=== PATIENT | male | born 1960 ===

== ENCOUNTER → 2020-08-03 15:21 | Outpatient (BNVA) | payer BC, SELFPAY | PROVIDERS: PCP Internal Medicine; Visit Provider Internal Medicine Cardiovascular Disease | DX: I25.10 Atherosclerotic heart disease of native coronary artery without angina pectoris (principal); I10 Essential (primary) hypertension | CPT/HCPCS: 93005 ==

== ENCOUNTER → 2020-08-30 07:27 | Outpatient (REF) | payer BC, SELFPAY ==
--- NOTE | 2020-08-30 07:36 | CA_ITS ---
Transthoracic Echocardiogram Patient (Last, First, Middle): Edy Agosto R Gender: Male Date of : 1960 Age: 60 Procedure Date: 08/30/2020 Procedure Type: Transthoracic Echocardiogram Location: OP Height: 175.26 cm Weight: 104.33 kg BSA: 2.19 m2 Heart Rate: bpm BP: 124 / 70 mmHg Operations Asst: Referring MD: Stephon Rodriguez MD Symptoms: I10 - Essential (primary) hypertension Study Quality: Fair ECG Rhythm: Sinus Conclusions: - The left ventricular systolic function is low normal. The visually estimated ejection fraction is between 50-55%. - No obvious valvular pathology seen on this study. Findings Left Ventricle Normal left ventricular cavity size. There is normal left ventricular wall thickness. The left ventricular systolic function is low normal. The visually estimated ejection fraction is between 50-55%. There is no evidence of regional wall motion abnormalities. Diastolic function is normal for age. Right Ventricle Normal right ventricular cavity size and systolic function. Atria The left atrium is normal in size. The right atrium is normal in size. Aortic Valve There is a normal trileaflet aortic valve. There is no aortic valve stenosis. There is no aortic valve regurgitation. Mitral Valve The mitral valve appears normal. There is trace mitral valve regurgitation. There is no mitral valve stenosis. Pulmonic Valve The pulmonic valve was not well visualized. Tricuspid Valve Normal tricuspid valve structure. There is trace tricuspid valve regurgitation. The pulmonary artery systolic pressure is normal. Great Vessels The asc aorta and aortic arch are normal in size. Venous The inferior vena cava is normal in size and collapses greater than 50% with inspiration. Pericardium/Pleural There is no evidence of pericardial effusion. Prior Study Comparison No significant change compared to prior study dated: 02/05/2016. Recommendations, Care & Conclusions No obvious valvular pathology seen on this study. Measurements 2D Linear Measurements RVIDd: 3.48 RVIDd Index: 1.59 IVSd: 0.95 0.6-0.9/0.6-1.0 cm LVIDd: 4.97 3.9-5.3/4.2-5.9 cm LVIDd Index: 2.27 2.4-3.2/2.2-3.1 cm/m2 LVIDs: 3.70 2.0-3.6 cm LVPWd: 1.12 0.7-1.1 cm Ao Root: 2.90 2.1-3.5 cm LA Diam: 3.50 2.7-3.8/3.0-4.0 cm LAIDs Index: 1.60 1.5-2.3 cm/m2 LV Mass: 234.58 67-162/88-224 g LV Mass Index: 107.11 43-95/49-115 g/m2 LVOT Diam: 2.20 3.0+(-)1.3 cm 2D Systolic Function EF 4C: 50.40 >55% EF 2C: 59.40 >55% EF BiP: 54.80 >55% Mitral Valve MV Pk E: 0.75 MV PK A: 0.47 MV Decel Time: 245.00 E/A: 1.60 E'Lateral: 8.27 E'Medial: 5.77 E/E' Med: 13.10 E/E' Lat: 9.10 Aortic Valve AoV Pk Bulmaro: 0.97 AoV Mn Bulmaro: 0.72 AoV VTI: 0.19 AoV Pk Grad: 4.00 Aov Mn Grad: 2.00 BRAX[place] Cont.VTI: 3.50 LVOT LVOT Pk Bulmaro: 0.92 LVOT Mn Bulmaro: 0.63 LVOT VTI: 0.17 LVOT Pk Grad: 3.00 LVOT Mn Grad: 2.00 LVOT Diam: 2.20 LVOT Area: 3.80 Diastolic Function MV Pk E: 0.75 MV Pk A: 0.47 E/A: 1.60 E'Medial: 5.77 E/E' Med: 13.10 E' Laterial: 8.27 E/E' Lat: 9.10 Tricuspid Valve TR Pk Bulmaro: 2.13 TR Pk Grad: 18.00 RA Press: 3.00 RVSP: 21.00 Great Vessels Aorta Ao Root-2D: 2.90 2.0-3.7 cm Ao Asc: 3.10 2.1-3.4 cm Ao Arch: 3.00 Updated in Other Vendor System with Status of Final Harmeet Garrison MD electronically signed on 08/30/2020 4:08:51 PM with status of Final
[2020-08-30 08:39] LABS: MANUAL DIFF FLAG NO
[2020-08-30 08:56] LABS: Basophils Percent Auto 0.8 % (0-2); Eosinophils Absolute Auto 0.1 X10*3/uL (0.0-0.4); Hematocrit 46.6 % (42-52); Hemoglobin 15.6 g/dl (14.0-18.0); Imm Gran Abs Auto 0.01 X10*3/uL (0.00-0.03); Imm Gran Pct Auto 0.2 % (0.0-0.4); Lymphocytes Absolute Auto 1.6 X10*3/uL (1.2-4.9); Lymphocytes Percent Auto 31.9 % (20-40); Mean Corpuscular HGB Conc 33.5 g/dl (31.0-36.0); Mean Corpuscular Volume 92.5 fL (80-98); Mean Platelet Volume 9.7 fL (9.4-12.4); Monocytes Absolute Auto 0.5 X10*3/uL (0.1-1.2); Monocytes Percent Auto 8.9 % (2-11); Neutrophils Absolute Auto 2.9 X10*3/uL (2.0-8.3); Neutrophils Percent Auto 57.2 % (45-73); Platelet Count 247 X10*3/uL (160-400); Red Blood Count 5.04 X10*6/uL (4.60-5.80); Red Cell Distribution Width 13.1 % (11.0-16.0); White Blood Count 5.1 X10*3/uL (4.8-10.8)
[2020-08-30 09:47] LABS: Folate 14.8 ng/mL (> or = 4.0); Vitamin B12 299 pg/mL (200-900)
[2020-08-30 09:52] LABS: Alanine Aminotransferase 30 U/L (0-40); Albumin Level 4.2 g/dL (3.5-5.0); Alkaline Phosphatase 63 U/L (39-117); Anion Gap 11 (12-20); Aspartate Amino Transferase 22 U/L (5-37); Bilirubin Total 1.1 mg/dL (0.0-1.0); Blood Urea Nitrogen 12 mg/dL (9-16); Calcium 9.4 mg/dL (8.4-10.2); Carbon Dioxide 28 mmol/L (22-29); Chloride 105 mmol/L (96-108); Cholesterol 86 mg/dL; Estimated Glomerular Filt Rate > 60; Glucose Random 88 mg/dL (60-115); HDL Cholesterol 45 mg/dL; LDL Cholesterol Calculated 14 mg/dl; Potassium 4.5 mmol/L (3.3-5.1); Sodium 139 mmol/L (135-145); Triglycerides 137 mg/dL
[2020-08-30 10:11] LABS: Free T4 (Free Thyroxine) 0.83 ng/dL (0.71-1.85); Prostate Specific Antigen Scr 0.32 ng/mL (<0.05-4.0); Thyroid Stimulating Hormone 1.48 uIU/mL (0.32-4.0)
== END ==
LOC: HO.CARD 07:27
PROVIDERS: PCP Internal Medicine; Visit Provider Internal Medicine Cardiovascular Disease
DX: I10 Essential (primary) hypertension (principal); E78.00 Pure hypercholesterolemia, unspecified; I25.10 Atherosclerotic heart disease of native coronary artery without angina pectoris; Z12.5 Encounter for screening for malignant neoplasm of prostate
CPT/HCPCS: 36415; 80053; 80061; 82607; 82746; 84153; 84439; 84443; 85025; 93306

== ENCOUNTER 2021-08-16 15:00 | Outpatient (RCR) | payer BC, SELFPAY ==
--- NOTE | 2021-07-19 16:00 | MHC.PT.EP ---
[facility] [place] [facility] [place] [facility] [place] [facility] [address] Yee Mayes [address] [phone] F: [phone] F: [phone] F: [phone] F: [phone] Physical Therapy Plan of Care Date of Evaluation: Date of Surgery: n/a Diagnosis: pain in L leg Assessment: Patient is a 61 year old male presenting to PT with complaints of pain in his L leg. Pt reports onset of pain began about 5 weeks ago due to stretching while in bed. He presents today with impairments in pain, lumbar ROM, hip strength, core strength, and posture. 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 Pt expresses senior living goal of reducing pain and sx, and is motivated to work towards this in PT. Clinical presentation today is most consistent with signs and sx associated with pain involving a nerve and pt will benefit from skilled PT to address the following problems and impairments noted upon evaluation: pain, lumbar ROM, hip strength, core strength, and posture. These problems limit the patient with the following functional activities: ADLs, work, sleep. The prescribed treatment plan of care is medically necessary. Co-morbidities of CAD, HTN, hx 2 CO in 40s has stents in place, hx herniated disc with surgery resolving sx were identified and taken into considerations of plan of care. Pt was educated on HEP, role of PT, prognosis, POC. Frequency and Duration: The patient will be seen 2 x week x 4 weeks Short Term Goals: Pt will demonstrate pain at rest <3/10 with centralizing sx in 2 weeks for improved QOL. Pt will demonstrate improved hip strength by 1/3 MMT for improved lumbopelvic stability in 2 weeks. Pt will demonstrate ability to perform PPT with good core activation in 2 weeks for improved core strength. Pt will demonstrate improved postural awareness by sitting with biomechanically correct posture without cues throughout session to improve overall postural function in 2 weeks. Manufacturing Team Member Goals: Pt will demonstrate improved LEFI by 9 points in 4 weeks for improved functional mobility. Pt will demonstrate ability to complete all ADLs with min to no pain or sx in 4 weeks for return to PLOF. Treatment Plan: Modalities to reduce pain, spasms and effusion. Manual therapy to restore motion and function. Therapeutic exercise to improve strength and flexibility. Neuromuscular re-education for posture and balance. Therapeutic activities to return to functional activities of daily living. Electronically signed by: Joelle Caldwell, PT, DPT, ATC Please sign and return to therapist. Thank you for your referral.
--- NOTE | 2021-08-18 11:09 | MHC.PT.DC ---
[facility] [place] [facility] [place] Office [place] Office [address] [phone] F: [phone] F: [phone] F: [phone] F: [phone] Physical Therapy Discharge Report Diagnosis: pain in L leg Date of Surgery: n/a Date of Evaluation: 07/19/21 Date of Discharge: 08/18/21 Treatments to Date: 8 Cancellations to Date: 1 No Shows to Date: 0 Discharge Status: Patient Elected to Stop Discharge Summary: Self d/c. Pt called stating he would like to be d/c from skilled PT. Electronically signed by: Joelle Caldwell, PT, DPT, ATC Please sign and return to therapist. Thank you for your referral.
== END 2021-08-18 11:10 | disposition home or self-care (01) ==
LOC: HO.PTCHIC 15:00
PROVIDERS: PCP Internal Medicine; Visit Provider Internal Medicine
DX: M79.605 Pain in left leg (principal)
CPT/HCPCS: 97110; 97140; 97161; 97530

== ENCOUNTER 2021-09-02 07:49 | Day surgery (SDC) | payer BC, SELFPAY ==
[2021-08-29 09:59] VITALS: BMI 34.0
--- NOTE | 2021-09-01 10:12 | HO.ANESPROP2 ---
Documented by User: Mel Gross NP 09/01/21 10:16 HPI - Anesthesia Eval Consult details Narrative: 61yo M for ?Colonoscopy CAD with stents ([place] 2008). Yearly cardiac f/u. Last seen 07/2020. Pt exercising 4-5 days per week without cardiac symptoms. [facility] Active Problems Active Problems: All Active Problems (Updated 07/08/21 @ 11:14 by Puma Dailey MD) Annual physical exam (Acute) Leg pain, left (Acute) Hypercholesterolemia (Acute) Hypertension (Acute) Obesity (BMI 30-39.9) (Acute) GERD (gastroesophageal reflux disease) (Acute) Coronary artery disease (Acute) Past Medical History Medical History (Updated 09/02/21 @ 07:57 by Glendy Schmid, RN) Alcohol abuse Coronary artery disease Erectile dysfunction GERD (gastroesophageal reflux disease) Hypercholesterolemia Hypertension Obesity (BMI 30-39.9) Polysubstance abuse Sciatica Vitamin D deficiency Family History Family History (Updated 06/22/20 @ 13:43 by Chhaya Durand [facility]) Father Myocardial infarction Hypertension CVD (cardiovascular disease) Mother Hypertension Maternal Aunt Breast cancer Surgical History Surgical History History of surgery Hx of cardiac cath Hx of colonoscopy Stented coronary artery Social History Social History (Updated 05/02/21 @ 16:52 by Puma Dailey MD) Housing: Condominium Alcohol intake: current Alcohol intake frequency: a few times a week Alcohol type: beer Patient Tobacco Use Status: Never used Tobacco e-Cigarette/Vaping Use: Never Used Second Hand Smoke Exposure: No Use of substances other than those prescribed or required for medical reasons: No Are you DNR?: No Advance Directives: No Advance Directives Information Provided: No Advance Directives on File: No service: No Current occupational status: employed Meds Allergies Allergy/AdvReac Type Severity Reaction Status Date / Time atorvastatin [Lipitor] AdvReac Unknown Muscle Verified 09/02/21 07:57 cramps ezetimibe [Zetia] AdvReac Unknown Muscle Verified 09/02/21 07:57 cramps rosuvastatin [Crestor] AdvReac Unknown Muscle Verified 09/02/21 07:57 cramps Statins Support AdvReac Unknown Muscle Uncoded 08/29/21 09:58 cramps Home Medications Medication Instructions Recorded Confirmed Last Taken Type aspirin 81 mg tablet,delayed 81 mg PO DAILY 06/28/20 08/29/21 08/26/21 History release (Adult Aspirin Regimen) coenzyme Q10 30 mg capsule (CoQ-10) 30 mg PO DAILY 06/28/20 08/29/21 Unknown History Exam Exam Date and Time: September 01, 2021 1012 Height,Weight and Vital Signs: Height 5 ft 9 in Weight 104.326 kg Assessment and Plan Assessment Anesthesia Assessment: Chart Reviewed Documented by User: Rosy Shaffer MD 09/02/21 09:00 PMFSH Active Problems Active Problems: All Active Problems (Updated 07/08/21 @ 11:14 by Puma Dailey MD) Annual physical exam (Acute) Leg pain, left (Acute) Hypercholesterolemia (Acute) Hypertension (Acute) Obesity (BMI 30-39.9) (Acute) GERD (gastroesophageal reflux disease) (Acute) Coronary artery disease (Acute) [place] 2006-2 stents, [place] 2008- 3 stents. Denies recent chest pain. 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 Due for visit soon Binge drinking at weekends Denies any substance abuse in 'months' Snores but denies QUINN Past Medical History Medical History (Updated 09/02/21 @ 07:57 by Glendy Schmid RN) Alcohol abuse Coronary artery disease Erectile dysfunction GERD (gastroesophageal reflux disease) Hypercholesterolemia Hypertension Obesity (BMI 30-39.9) Polysubstance abuse Sciatica Vitamin D deficiency Family History Family History (Updated 06/22/20 @ 13:43 by KATH Hagan) Father Myocardial infarction Hypertension CVD (cardiovascular disease) Mother Hypertension Maternal Aunt Breast cancer Family history of problems with anesthesia: No Surgical History Surgical History History of surgery Hx of cardiac cath Hx of colonoscopy Stented coronary artery History of Problems with Anesthesia: No Social History Social History (Updated 05/02/21 @ 16:52 by Puma Dailey MD) Housing: [facility] Alcohol intake: current Alcohol intake frequency: a few times a week Alcohol type: beer Patient Tobacco Use Status: Never used Tobacco e-Cigarette/Vaping Use: Never Used Second Hand Smoke Exposure: No Use of substances other than those prescribed or required for medical reasons: No Are you DNR?: No Advance Directives: No Advance Directives Information Provided: No Advance Directives on File: No service: No Current occupational status: employed Meds Allergies Allergy/AdvReac Type Severity Reaction Status Date / Time atorvastatin [Lipitor] AdvReac Unknown Muscle Verified 09/02/21 07:57 cramps ezetimibe [Zetia] AdvReac Unknown Muscle Verified 09/02/21 07:57 cramps rosuvastatin [Crestor] AdvReac Unknown Muscle Verified 09/02/21 07:57 cramps Statins Support AdvReac Unknown Muscle Uncoded 08/29/21 09:58 cramps Home Medications Medication Instructions Recorded Confirmed Last Taken Type aspirin 81 mg tablet,delayed 81 mg PO DAILY 06/28/20 08/29/21 08/26/21 History release (Adult Aspirin Regimen) coenzyme Q10 30 mg capsule (CoQ-10) 30 mg PO DAILY 06/28/20 08/29/21 Unknown History Exam Height,Weight and Vital Signs: Height 5 ft 9 in Weight 104.326 kg Vital Signs Temp Pulse Resp BP Pulse Ox 09/02/21 08:03 97.4 F 68 15 146/64 H 97 Airway Mallampati Class: III TM Dist: >3cm Neck ROM: Full Loose/Missing/Broken Teeth: Yes (Missing 1 front. No broken/loose) Heart: RRR Lungs: CTAB Assessment and Plan Final Anesthetic Review Family History of Problems with Anesthesia: No History of Problems with Anesthesia: No NPO: Yes ASA Class: III Final Preanesthetic Review: No Changes in Pt Med Stat, Meds/Allgs Chart Reviewed, Consent Obtained/Reviewed and Anes Risks/Benef Reviewed Patient Risk: Intermediate Procedure Risk: Low Assessment/Block/Sedation in SS: Assess/Block/Sedation-SS Anesthetic Plan Anesthetic Plan: MAC: Disposition: Standard PACU
[2021-09-02 08:03] VITALS: BP 146/64; PULSE 68; RESP 15; TEMP 36.3; O2SAT 97
[2021-09-02] MEDS: Lactated Ringers 1,000 ML 100 ML IVCONT (08:17)
--- NOTE | 2021-09-02 09:04 | MHC.SHP ---
Pre-Procedural Eval Section A Date of Service: 09/02/21 Section B Chief Complaint: screening Details of Present Illness: see h and p no changes Relevant Family History (Specify if Yes): No Relevant Social History: None Present Medications: see Short Stay Collaborative assessment Medical History: No relevant PMH History of Previous Operations: No relevant previous surgery Allergies: Allergies Allergy/AdvReac Type Severity Reaction Status Date / Time atorvastatin [Lipitor] AdvReac Unknown Muscle Verified 09/02/21 07:57 cramps ezetimibe [Zetia] AdvReac Unknown Muscle Verified 09/02/21 07:57 cramps rosuvastatin [Crestor] AdvReac Unknown Muscle Verified 09/02/21 07:57 cramps Statins Support AdvReac Unknown Muscle Uncoded 08/29/21 09:58 cramps Review of Systems Sugical H&P ROS: Negative: Constitution, Cardiovascular, Respiratory, Neurological, Psychiatric, Hem-Onc, Allergic/Immunologic, Gastrointestinal, Genitourinary, Musculoskeletal, Integumentary, Endocrine and Eyes/Ears/Nose/Throat Exam Surgical H&P Exam: Normal: HEENT, Normal: Heart, Normal: Lungs, Normal: Extremities, Normal: Abdomen, Normal: Skin and Normal: Neurological Plan I have reviewed the history and physical and performed a pertinent physical examination on my patient. No changes have occurred unless specified.
[2021-09-02 09:49] VITALS: BP 95/60; PULSE 72; RESP 16; TEMP 36.5; O2SAT 98
--- NOTE | 2021-09-02 09:53 | P.BOP_ITS ---
Brief Operative Note Date of Service: 09/02/21 Pre-op diagnosis: screening Post-op diagnosis: same (colon polyps) Surgeon: Jose Jacques Anesthesia: MAC Was an Extruding Press Adjuster used for this Procedure?: No Estimated blood loss (mL): 2 Pathology: other Condition: stable Disposition: PACU
[2021-09-02 10:04] VITALS: BP 118/72; PULSE 65; RESP 16; TEMP 36.6; O2SAT 99
[2021-09-02 10:19] VITALS: BP 111/68; PULSE 62; RESP 16; TEMP 36.2; O2SAT 98
--- NOTE | 2021-09-02 22:20 | OP_ITS ---
SURGEON: Jose Jacques MD INDICATIONS: Colon cancer screening. PREOPERATIVE DIAGNOSIS: POSTOPERATIVE DIAGNOSIS: PROCEDURE PERFORMED: Colonoscopy to the terminal ileum with snare polypectomy and biopsy. ESTIMATED BLOOD LOSS: COMPLICATIONS: ANESTHESIA: ASSISTANTS: SPECIMENS: MEDICATIONS: Monitored anesthesia care. DESCRIPTION OF PROCEDURE: The history and physical performed. The risks and benefits of the procedure were explained to the patient. Informed consent was obtained. The patient was placed in the left lateral decubitus position. A digital rectal exam was performed and was found to be normal. The Olympus pediatric video colonoscope was introduced into the rectum and advanced to the cecum without difficulty. The cecum was identified by transillumination, palpation, and identification of the ileocecal valve. Examination was performed. The scope was removed. He tolerated the procedure well and was taken to Recovery in stable condition. FINDINGS: The terminal ileum was normal. The visualized colonic mucosa was normal. The quality of the prep was good. In the right colon was an 8 mm polyp, which was removed with a cold snare and recovered via suction. In the rectum was a less than 5 mm sessile polyp, which was removed with the biopsy forceps. There was moderate sigmoid diverticulosis. Retroflexed examination was normal. IMPRESSION: Colon polyps. RECOMMENDATION: Follow up the biopsy results. MD YURIDIA Rascon/MARIELENAL / [id number]
== END 2021-09-02 11:14 | disposition home or self-care (01) ==
PROVIDERS: PCP Internal Medicine; Visit Provider Internal Medicine Gastroenterology
PROC: 0DJD8ZZ Inspection of Lower Intestinal Tract, Via Natural or Artificial Opening Endoscopic (ICD-10-PCS; CPT 45378; principal; 2021-09-02 09:00)
DX: Z12.11 Encounter for screening for malignant neoplasm of colon (principal); Z86.010 Personal history of colon polyps; D12.2 Benign neoplasm of ascending colon; K62.1 Rectal polyp; K57.30 Diverticulosis of large intestine without perforation or abscess without bleeding; G58.8 Other specified mononeuropathies; I25.10 Atherosclerotic heart disease of native coronary artery without angina pectoris; Z95.5 Presence of coronary angioplasty implant and graft; E78.00 Pure hypercholesterolemia, unspecified; Z79.82 Long term (current) use of aspirin; Z79.899 Other long term (current) drug therapy; Z98.890 Other specified postprocedural states
CPT/HCPCS: 45385; 45380; 88305

== ENCOUNTER 2021-11-03 06:01 | Outpatient (REF) | payer BC, SELFPAY ==
[2021-11-03 07:25] LABS: Basophils Percent Auto 0.5 % (0-2); Eosinophils Absolute Auto 0.1 X10*3/uL (0.0-0.4); Eosinophils Percent Auto 1.6 % (0-4); Hematocrit 45.8 % (42.0-52.0); Hemoglobin 15.4 g/dl (14.0-18.0); Imm Gran Abs Auto 0.01 X10*3/uL (0.00-0.03); Imm Gran Pct Auto 0.2 % (0.0-0.4); Lymphocytes Absolute Auto 1.5 X10*3/uL (1.2-4.9); Lymphocytes Percent Auto 26.6 % (20-40); MANUAL DIFF FLAG NO; Mean Corpuscular HGB Conc 33.6 g/dl (31.0-36.0); Mean Corpuscular Volume 92.3 fL (80.0-98.0); Mean Platelet Volume 9.6 fL (9.4-12.4); Monocytes Absolute Auto 0.6 X10*3/uL (0.1-1.2); Monocytes Percent Auto 9.9 % (2-11); Neutrophils Absolute Auto 3.4 x10*3/uL (2.0-8.3); Neutrophils Percent Auto 61.2 % (45-73); Platelet Count 253 X10*3/uL (160-400); Red Blood Count 4.96 X10*6/uL (4.60-5.80); Red Cell Distribution Width 13.2 % (11.0-16.0); White Blood Count 5.5 X10*3/uL (4.8-10.8)
[2021-11-03 08:12] LABS: Alanine Aminotransferase 34 U/L (0-40); Albumin Level 4.4 g/dL (3.5-5.0); Alkaline Phosphatase 66 U/L (39-117); Anion Gap 14 (12-20); Aspartate Amino Transferase 23 U/L (5-37); Bilirubin Total 0.7 mg/dL (0.0-1.0); Blood Urea Nitrogen 17 mg/dL (9-16); Carbon Dioxide 26 mmol/L (22-29); Chloride 106 mmol/L (96-108); Cholesterol 105 mg/dL; Estimated Glomerular Filt Rate > 60; Glucose Random 95 mg/dL (60-115); HDL Cholesterol 45 mg/dL; LDL Cholesterol Calculated 40 mg/dl; Potassium 4.8 mmol/L (3.3-5.1); Sodium 141 mmol/L (135-145); Total Protein 7.4 g/dL (6.5-8.0); Triglycerides 104 mg/dL
[2021-11-03 08:33] LABS: Free T4 (Free Thyroxine) 0.78 ng/dL (0.71-1.85); Prostate Specific Antigen Scr 0.31 ng/mL (<0.05-4.0); Thyroid Stimulating Hormone 2.53 uIU/mL (0.32-4.0)
[2021-11-03 08:53] LABS: Folate 15.6 ng/mL (> or = 4.0); Vitamin B12 313 pg/mL (200-900)
== END 2021-11-03 06:02 | disposition home or self-care (01) ==
LOC: HO.LAB 06:01
PROVIDERS: PCP Internal Medicine; Visit Provider Internal Medicine
DX: K21.9 Gastro-esophageal reflux disease without esophagitis (principal); E78.00 Pure hypercholesterolemia, unspecified; I25.10 Atherosclerotic heart disease of native coronary artery without angina pectoris; Z12.5 Encounter for screening for malignant neoplasm of prostate
CPT/HCPCS: 36415; 80053; 80061; 82607; 82746; 84153; 84439; 84443; 85025

== ENCOUNTER → 2021-11-24 15:22 | Outpatient (BNVA) | payer BC, SELFPAY | PROVIDERS: PCP Internal Medicine; Referring Provider Internal Medicine; Visit Provider Internal Medicine Cardiovascular Disease | DX: I25.10 Atherosclerotic heart disease of native coronary artery without angina pectoris (principal); I10 Essential (primary) hypertension | CPT/HCPCS: 93005 ==

== ENCOUNTER 2022-11-08 06:38 | Outpatient (REF) | payer BC, SELFPAY ==
[2022-11-08 06:55] LABS: MANUAL DIFF FLAG NO
[2022-11-08 08:52] LABS: Basophils Percent Auto 0.4 % (0-2); Eosinophils Absolute Auto 0.1 X10*3/uL (0.0-0.4); Eosinophils Percent Auto 1.2 % (0-4); Hematocrit 47.5 % (42.0-52.0); Hemoglobin 16.1 g/dl (14.0-18.0); Imm Gran Abs Auto 0.02 X10*3/uL (0.00-0.03); Imm Gran Pct Auto 0.4 % (0.0-0.4); Lymphocytes Absolute Auto 1.4 X10*3/uL (1.2-4.9); Lymphocytes Percent Auto 28.7 % (20-40); Mean Corpuscular HGB Conc 33.9 g/dl (31.0-36.0); Mean Corpuscular Hemoglobin 31.4 pg (27.0-33.0); Mean Corpuscular Volume 92.8 fL (80.0-98.0); Monocytes Absolute Auto 0.4 X10*3/uL (0.1-1.2); Neutrophils Absolute Auto 3.1 x10*3/uL (2.0-8.3); Neutrophils Percent Auto 61.3 % (45-73); Platelet Count 263 X10*3/uL (160-400); Red Blood Count 5.12 X10*6/uL (4.60-5.80)
[2022-11-08 09:28] LABS: Alanine Aminotransferase 35 U/L (0-40); Alkaline Phosphatase 62 U/L (39-117); Anion Gap 14 (12-20); Aspartate Amino Transferase 20 U/L (5-37); Bilirubin Total 0.7 mg/dL (0.0-1.0); Blood Urea Nitrogen 13 mg/dL (9-16); Calcium 9.7 mg/dL (8.4-10.2); Carbon Dioxide 20 mmol/L (22-29); Chloride 109 mmol/L (96-108); Cholesterol 97 mg/dL; Estimated Glomerular Filt Rate > 60; Glucose Random 92 mg/dL (60-115); HDL Cholesterol 44 mg/dL; LDL Cholesterol Calculated 32 mg/dl; Potassium 4.2 mmol/L (3.3-5.1); Sodium 139 mmol/L (135-145); Total Protein 7.2 g/dL (6.5-8.0); Triglycerides 108 mg/dL
[2022-11-08 09:48] LABS: Thyroid Stimulating Hormone 1.95 uIU/mL (0.32-4.0)
[2022-11-08 09:52] LABS: Folate 12.7 ng/mL (> or = 4.0); Prostate Specific Antigen Scr 0.29 ng/mL (<0.05-4.0); Vitamin B12 396 pg/mL (200-900)
== END 2022-11-08 06:39 | disposition home or self-care (01) ==
LOC: HO.LAB 06:38
PROVIDERS: PCP Internal Medicine; Visit Provider Internal Medicine
DX: Z12.5 Encounter for screening for malignant neoplasm of prostate (principal); I25.10 Atherosclerotic heart disease of native coronary artery without angina pectoris; K21.9 Gastro-esophageal reflux disease without esophagitis; E78.00 Pure hypercholesterolemia, unspecified
CPT/HCPCS: 36415; 80053; 80061; 82607; 82746; 84153; 84439; 84443; 85025

== ENCOUNTER 2022-11-23 15:54 | Outpatient (AMB) | payer BC, SELFPAY ==
[2022-11-23 15:55] VITALS: BP 120/70; PULSE 74; BMI 35.2
--- NOTE | 2022-11-23 15:55 | A.OFFVIS_ITS ---
Intake Vital Signs 11/23/22 15:55 Height 5 ft 9 in Weight 238 lb 1.588 oz BMI 35.2 BP 120/70 Blood Pressure Location Lt brachial Position Sitting Pulse 74 Intake Visit Reasons: 1 yr f/up Intake Note: 1 year f/u Sales Service Route Manager Required: No Allergies atorvastatin [Lipitor] Adverse Reaction (Unknown, Verified 11/23/22 16:04) Muscle cramps ezetimibe [Zetia] Adverse Reaction (Unknown, Verified 11/23/22 16:04) Muscle cramps rosuvastatin [Crestor] Adverse Reaction (Unknown, Verified 11/23/22 16:04) Muscle cramps Statins Support Adverse Reaction (Unknown, Uncoded 07/24/22 16:11) Muscle cramps Medication List - Last Reconciled 11/23/22 by Oralia Figueroa NP-C aspirin (Adult Aspirin Regimen) 81 mg PO DAILY coenzyme Q10 (CoQ-10) 30 mg PO DAILY metoprolol succinate ER 50 mg PO DAILY Repatha SureClick (evolocumab) 140 mg subcut Q2W 30 days NS sildenafil (Viagra) 100 mg PO DAILY PRN HPI 1 yr f/up HPI Details Edy is a 62-year-old male with past medical history of hypertension, hyperlipidemia, obesity, CAD with multi PCIs in the past who presents for follow-up. His last prior visit to cardiology was 11/24/2021. Today he reports he has been feeling well with no concerning symptoms. He denies any chest discomfort at rest or with activity. No concerning shortness of breath. No PND, orthopnea or edema. No palpitations, dizziness, presyncope, syncope. He goes to the gym 3 times weekly and does 30 minutes of lifting and 30 minutes of cardio. 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 He reports compliance with his medications. [facility] Medical History Alcohol abuse Coronary artery disease Erectile dysfunction GERD (gastroesophageal reflux disease) Hypercholesterolemia Hypertension Obesity (BMI 30-39.9) Polysubstance abuse Sciatica Vitamin D deficiency Surgical History (Updated 11/23/22 @ 16:54 by Oralia Figueroa, MARLENY-C) History of surgery Hx of cardiac cath Hx of colonoscopy Stented coronary artery Family History Father Myocardial infarction Hypertension CVD (cardiovascular disease) Mother Hypertension Maternal Aunt Breast cancer Brother CVD (cardiovascular disease) Social History Housing: Condominium Alcohol intake: current Alcohol intake frequency: a few times a week Alcohol type: beer Patient Tobacco Use Status: Never used Tobacco e-Cigarette/Vaping Use: Never Used Second Hand Smoke Exposure: No service: No Current occupational status: employed Cognitive needs: No Hearing needs: No Vision needs: No Review of Systems Const All systems reviewed & are unremarkable except as noted in HPI and below ENT Reports dizziness Card Denies chest pain, Denies chest pain at rest, Denies chest pain with activity, Denies rapid heart rate, Denies pedal edema, Denies edema, Denies leg edema, Denies lightheadedness, Denies palpitations, Denies dyspnea, Denies dyspnea on exertion and Denies orthopnea Resp Denies cough, Denies dyspnea and Denies dyspnea on exertion GI Denies hematochezia and Denies change in stool character Musc Denies abnormal gait, Reports limited range of motion, Reports muscle cramps, Denies muscle weakness, Denies numbness, Denies radiating pain into limb, Denies stiffness and Denies tingling Neuro Denies abnormal gait, Reports dizziness, Denies numbness and Denies tingling Endo Denies palpitations Physical Exam Vital Signs: Last Vital Signs Pulse 74 11/23/22 15:55 BP 120/70 11/23/22 15:55 BMI result Body Mass Index 35.2 Const Other: muscular build General: cooperative, healthy appearing, comfortable and no acute distress Orientation/consciousness: patient oriented x3 Neck Neck: Yes normal visual inspection Resp Effort & Inspection: normal respiratory effort Auscultation: clear to auscultation bilaterally, no crackles, no rales, no rhonchi and no wheezes Cardio Jugular venous distension: no JVD Rate: regular rate Rhythm: regular rhythm Heart sounds: S1 normal heart sound present, S2 normal heart sound present, no gallops, no murmurs and no rubs Neuro General: patient oriented x3 Extrem General: Yes normal to inspection Psych Appearance: grossly normal Mental Status: mental status grossly normal Speech and movement: Normal speech and movement present Office Procedures EKG Details: Today, read by me, SR with one PVC, T wave abnormality lateral leads - same as prior EKG, rate 74, QTc 455m [id number], Complete Assessment & Plan Assessment & Plan (1) Coronary artery disease: Comment: Premature atherosclerosis. Code(s): I25.10 - Atherosclerotic heart disease of [place] coronary artery without angina pectoris Qualifiers: Associated angina: without angina Coronary Disease-Associated Artery/Lesion type: [place] artery [place] vs. transplanted heart: [place] heart Qualified Code(s): I25.10 - Atherosclerotic heart disease of [place] coronary artery without angina pectoris Plan: History of CAD with multi PCI in the past. Condition has remained stable without any recurrent anginal symptoms. EKG done today showing sinus rhythm with T-wave inversions in the lateral leads which is unchanged from EKG done last year. Recent labs done 11/08/2022 shows LDL 32. He is intolerant to statins and is on Repatha. He continues on aspirin indefinitely. Continues on metoprolol XL 50 mg daily. Blood pressure is well controlled. He exercises routinely without concerning symptoms. Last echocardiogram done 08/30/2020 showed EF 50-55%, no regional wall motion abnormality and no valve abnormalities. Signs and symptoms of angina reviewed. Cardiology follow-up in 1 year, sooner if needed (2) Stented coronary artery: Comment: [place], September 2007, proximal LAD bare metal stent in overlapping bare metal stent in OM1. Inferior STEMI October 2008, bare metal stent to proximal RCA. Noted to have severe ISR in LAD and OM1 stents Code(s): Z95.5 - Presence of coronary angioplasty implant and graft (3) Hypertension: Code(s): I10 - Essential (primary) hypertension Qualifiers: Hypertension type: essential hypertension Qualified Code(s): I10 - Essential (primary) hypertension Plan: Well controlled (4) Hypercholesterolemia: Code(s): E78.00 - Pure hypercholesterolemia, unspecified Plan: Well controlled Coding Level of Care Code Est Pt Level 4 (82786) Diagnoses Coronary artery disease I25.10 Associated angina: without angina Coronary Disease-Associated Artery/Lesion type: [place] artery [place] vs. transplanted heart: [place] heart Stented coronary artery Z95.5 Hypertension I10 Hypertension type: essential hypertension Hypercholesterolemia E78.00 CPT Codes EKG - CPT: [id number], Complete ([id number]) Time Spent (min) 28 Comment Chart review, documentation, interview, assessment
== END 2022-11-23 16:28 | disposition home or self-care (01) ==
PROVIDERS: PCP Internal Medicine; Visit Provider Nurse Practitioner Family
DX: I49.3 Ventricular premature depolarization (principal)
CPT/HCPCS: 93010; 99214

== ENCOUNTER → 2022-11-23 15:54 | Outpatient (BNVA) | payer BC, SELFPAY | PROVIDERS: PCP Internal Medicine; Visit Provider Nurse Practitioner Family | DX: I25.10 Atherosclerotic heart disease of native coronary artery without angina pectoris (principal); I10 Essential (primary) hypertension; E78.00 Pure hypercholesterolemia, unspecified; Z95.5 Presence of coronary angioplasty implant and graft | CPT/HCPCS: 93005 ==

== ENCOUNTER 2023-01-29 16:37 | Outpatient (AMB) | payer BC, SELFPAY ==
[2023-01-29 16:38] VITALS: BP 118/86; PULSE 71; O2SAT 98; BMI 35.1
--- NOTE | 2023-01-29 16:38 | MHC.PC.OV ---
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 Allergies atorvastatin [Lipitor] Adverse Reaction (Unknown, Verified 01/29/23 16:39) Muscle cramps ezetimibe [Zetia] Adverse Reaction (Unknown, Verified 01/29/23 16:39) Muscle cramps rosuvastatin [Crestor] Adverse Reaction (Unknown, Verified 01/29/23 16:39) Muscle cramps Statins Support Adverse Reaction (Unknown, Uncoded 01/29/23 16:39) Muscle cramps Medication List - Last Reconciled 01/29/23 by Puma Dailey MD aspirin (Adult Aspirin Regimen) 81 mg PO DAILY coenzyme Q10 (CoQ-10) 30 mg PO DAILY metoprolol succinate ER 50 mg PO DAILY Repatha SureClick (evolocumab) 140 mg subcut Q2W 30 days NS sildenafil (Viagra) 100 mg PO DAILY PRN Tobacco use date assessed: 01/29/23 Dental Screening Dental Screen Date: 01/29/23 Did you have a dental visit in the last 12 months?: Yes Did you have a dental problem in the last 6 months where you did not have access to dental care?: No Was dental information given to patient?: Patient has dentist HPI 6M follow up HPI Details 63-year-old obese male with coronary artery disease hypertension hypercholesterolemia GERD last seen in June 2022. Patient is up-to-date with colonoscopy. Patient has followed up with Cardiology patient has been stable October 2022 last blood work with an LDL of 32 intolerant of statins and is on Repatha PFSH Medical History Sciatica Polysubstance abuse Vitamin D deficiency Hypercholesterolemia Hypertension Obesity (BMI 30-39.9) Erectile dysfunction GERD (gastroesophageal reflux disease) Coronary artery disease Alcohol abuse Surgical History (Updated 11/23/22 @ 16:54 by FUNMILAYO Bains) Hx of cardiac cath Hx of colonoscopy Stented coronary artery History of surgery Family History Father Myocardial infarction Hypertension CVD (cardiovascular disease) Mother Hypertension Maternal Aunt Breast cancer Brother CVD (cardiovascular disease) Social History Housing: Condominium Alcohol intake: current Alcohol intake frequency: a few times a week Alcohol type: beer Patient Tobacco Use Status: Never used Tobacco e-Cigarette/Vaping Use: Never Used Second Hand Smoke Exposure: No service: No Current occupational status: employed Cognitive needs: No Hearing needs: No Vision needs: No Questionnaire Thrive Questionnaire Date Thrive assessed: 07/24/22 AUDIT C Alcohol Use Questionnaire (AUDIT-C) 1. How often do you have a drink containing alcohol?: 2-3 times a week 2. How many drinks containing alcohol do you have on a typical day when you are drinking?: 3 or 4 3. How often do you have six or more drinks on one occasion?: Never Total Score: 4 JOSÉ LUIS-7 AMB Questionnaire JOSÉ LUIS-7 Date JOSÉ LUIS - 7 assessed: 07/24/22 Source: Developed by Drs. Juan Carlos Watters, Moon Franks, Lan Dickey and colleagues, with an educational nancy from [employer]. Physical exam (Primary Care) Vital Signs: Last Vital Signs Pulse 71 01/29/23 16:38 BP 118/86 01/29/23 16:38 Pulse Ox 98 01/29/23 16:38 Oxygen Delivery Method Room Air 01/29/23 16:38 BMI result Body Mass Index 35.1 Tobacco/Smoking Status: Tobacco use Status Tobacco use date assessed 01/29/23 01/29/23 16:46 Patient Tobacco Use Status Never used Tobacco 01/29/23 16:46 e-Cigarette/Vaping Use Never Used 01/29/23 16:46 Thrive Assessment: Date of Thrive Assessment Date Thrive assessed 07/24/22 01/29/23 16:46 Const General: alert; No acute distress Eyes Conjunctivae: conjunctivae normal Resp Auscultation: clear to auscultation bilaterally Cardio Rate: regular rate Rhythm: regular rhythm GI Inspection: Yes normal to inspection Extrem General: Yes normal to inspection and No edema Office Procedures Flu Questionnaire Does the patient have a severe egg allergy?: No Does the patient have severe life threatening allergies?: No Does the patient have a fever or illness today?: No Has the patient ever had Guillain-Robeline Syndrome?: No Has the patient ever had any past reaction to a flu shot?: No Immunizations flu vacc [id number] 6mos up(PF) 60 mcg(15 mcgx4)/0.5 mL IM syringe Performing Provider: Puma Dailey MD Per[facility] [place] [facility] Documented (not given) by: Faustinaanneliese Lockwood DAYORosa M on 01/29/23 16:47 Reason Not Given: Patient Refused Assessment and Plan Assessment & Plan (1) Obesity (BMI 30-39.9): Code(s): E66.9 - Obesity, unspecified Plan: Diet and exercise. discussed about options on helping him lose the weight. Patient will try to eat healthier and keeping active (2) Coronary artery disease: Comment: Premature atherosclerosis. Code(s): I25.10 - Atherosclerotic heart disease of [place] coronary artery without angina pectoris Qualifiers: Coronary Disease-Associated Artery/Lesion type: [place] artery [place] vs. transplanted heart: [place] heart Associated angina: without angina Qualified Code(s): I25.10 - Atherosclerotic heart disease of [place] coronary artery without angina pectoris Plan: Control the cholesterol, weight, blood pressure and continue with aspirin (3) GERD (gastroesophageal reflux disease): Code(s): K21.9 - Gastro-esophageal reflux disease without esophagitis Qualifiers: Esophagitis presence: without esophagitis Qualified Code(s): K21.9 - Gastro-esophageal reflux disease without esophagitis Plan: Avoid the foods that causes that usually spicy foods, tomato products, juices, coffee, soda and foods that your sensitive to. After eating do not lie down, allow 3-4 hours before in lie down. And keep the head of bed above 30 degrees to avoid the acid from going up. (4) Hypertension: Code(s): I10 - Essential (primary) hypertension Qualifiers: Hypertension type: essential hypertension Qualified Code(s): I10 - Essential (primary) hypertension Plan: Continue with blood pressure medication. Decrease salt intake and exercise continue with metoprolol 50 mg once a day (5) Hypercholesterolemia: Code(s): E78.00 - Pure hypercholesterolemia, unspecified Plan: Avoid fried foods, chicken skin, eggs, butter margarine, pastries and meat. Be it pork or beef they have a lot of cholesterol LDL goal of less than 70 and triglyceride of less than 150 patient on Repatha Orders: Orders Influenza [id number] Immunization Today Z23 - Encounter for immunization Medications: Refilled sildenafil (Viagra) administer 30 minutes to 4 hours before activity 100 mg PO DAILY PRN 10 tabs 5RF sexual activity K21.9 - Gastro-esophageal reflux disease without esophagitis Coding Level of Care Code Est Pt Level 4 (49545) Diagnoses Obesity (BMI 30-39.9) E66.9 Coronary artery disease involving [place] coronary artery of [place] heart without angina pectoris I25.10 Coronary Disease-Associated Artery/Lesion type: [place] artery [place] vs. transplanted heart: [place] heart Associated angina: without angina Gastroesophageal reflux disease without esophagitis K21.9 Esophagitis presence: without esophagitis Essential hypertension I10 Hypertension type: essential hypertension Hypercholesterolemia E78.00
== END 2023-01-29 17:07 | disposition home or self-care (01) ==
PROVIDERS: Visit Provider Internal Medicine
DX: E66.9 Obesity, unspecified (principal); Z68.35 Body mass index [BMI] 35.0-35.9, adult; I25.10 Atherosclerotic heart disease of native coronary artery without angina pectoris; I10 Essential (primary) hypertension
CPT/HCPCS: 99214

== ENCOUNTER 2023-07-30 16:03 | Outpatient (AMB) | payer BC, SELFPAY ==
[2023-07-30 16:11] VITALS: BP 124/78; PULSE 63; O2SAT 98; BMI 36.0
--- NOTE | 2023-07-30 16:11 | A.OFFPC_ITS ---
Vital Signs 07/30/23 16:11 Height 5 ft 9 in Weight 244 lb BMI 36.0 BP 124/78 Blood Pressure Location Lt brachial Position Sitting Pulse 63 Pulse Source Pulse Oximeter Pulse Oximetry (%) 98 Oxygen Delivery Method Room Air Intake Visit Reasons: PE Intake Note: Patient is here today for a physical. 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 Allergies atorvastatin [Lipitor] Adverse Reaction (Unknown, Verified 07/30/23 16:11) Muscle cramps ezetimibe [Zetia] Adverse Reaction (Unknown, Verified 07/30/23 16:11) Muscle cramps rosuvastatin [Crestor] Adverse Reaction (Unknown, Verified 07/30/23 16:11) Muscle cramps Statins Support Adverse Reaction (Unknown, Uncoded 07/30/23 16:11) Muscle cramps Medication List - Last Reconciled 07/30/23 by Puma Dailey MD aspirin (Adult Aspirin Regimen) 81 mg PO DAILY coenzyme Q10 (CoQ-10) 30 mg PO DAILY metoprolol succinate ER 50 mg PO DAILY Repatha SureClick (evolocumab) 140 mg subcut Q2W NS sildenafil (Viagra) 100 mg PO DAILY PRN Tobacco use date assessed: 07/30/23 Dental Screening Dental Screen Date: 07/30/23 Did you have a dental visit in the last 12 months?: Yes Did you have a dental problem in the last 6 months where you did not have access to dental care?: No Was dental information given to patient?: Patient has dentist HPI PE HPI Details 63-year-old obese male(gained 6 lb) with coronary artery disease GERD hypertension hypercholesterolemia last seen in January 2023. Patient is here for physical exam. Up-to-date with colonoscopy August 2021 PFSH Medical History Sciatica Polysubstance abuse Vitamin D deficiency Hypercholesterolemia Hypertension Obesity (BMI 30-39.9) Erectile dysfunction GERD (gastroesophageal reflux disease) Coronary artery disease Alcohol abuse Surgical History (Updated 11/23/22 @ 16:54 by FUNMILAYO Bains) Hx of cardiac cath Hx of colonoscopy Stented coronary artery History of surgery Family History Father Myocardial infarction Hypertension CVD (cardiovascular disease) Mother Hypertension Maternal Aunt Breast cancer Brother CVD (cardiovascular disease) Social History (Updated 07/30/23 @ 17:14 by Puma Dailey MD) Housing: Condominium Alcohol intake: current Alcohol intake frequency: a few times a week Alcohol type: beer Comment: 2 days weekend 6 beers Patient Tobacco Use Status: Never used Tobacco e-Cigarette/Vaping Use: Never Used Second Hand Smoke Exposure: No service: No Current occupational status: employed Cognitive needs: No Hearing needs: No Vision needs: No Questionnaire PHQ-9 Over the last 2 weeks, how often have you been bothered by any of the following problems? 1. Little interest or pleasure in doing things: not at all 2. Feeling down, depressed, or hopeless: not at all 3. Trouble falling or staying asleep, or sleeping too much: not at all 4. Feeling tired or having little energy: not at all 5. Poor appetite or overeating: not at all 6. Feeling bad about yourself - or that you are a failure or have let yourself or your family down: not at all 7. Trouble concentrating on things, such as reading the newspaper or watching television: not at all 8. Moving or speaking so slowly that other people could have noticed. Or the opposite - being so fidgety or restless that you have been moving around a lot more than usual: not at all 9. Thoughts that you would be better off or of hurting yourself in some way: not at all Total score: 0 Depression Screening Interpretation: Negative Depression Screening Done: Yes 10091 - PHQ-9 Billing: Yes Source: Developed by Drs. Juan Carlos Watters, Moon Franks, Lan Dickey and colleagues, with an educational nancy from [employer]. Thrive Questionnaire Date Thrive assessed: 07/30/23 I am a: Patient What is your living situation today?: I have a steady place to live Within the past 12 months, did the food you bought not last and you didn't have the money to get more?: Never true Within the past 12 months, did you worry whether your food would run out before you got money to buy more?: Never true Do you have trouble paying for medicines?: No Do you have trouble getting transportation to medical appointments?: No Do you have trouble paying your heating and electricity bill?: No Do you have trouble taking care of your child, family member or friend?: No Do you have trouble with day-to-day activities such as bathing, preparing meals, shopping, managing finances, etc.?: No Are you currently unemployed and looking for a job?: No Are you interested in more education?: No Please select the resources that you would like help with: None Currently or been in a relationship where the following occur: no concerns reported THRIVE Score: 0 AUDIT C Alcohol Use Questionnaire (AUDIT-C) 1. How often do you have a drink containing alcohol?: 2-3 times a week 2. How many drinks containing alcohol do you have on a typical day when you are drinking?: 3 or 4 3. How often do you have six or more drinks on one occasion?: Never Total Score: 4 JOSÉ LUIS-7 AMB Questionnaire JOSÉ LUIS-7 Date JOSÉ LUIS - 7 assessed: 07/30/23 Feeling nervous, anxious, or on edge: 0 = Not at all Not being able to stop or control worryin = Not at all Worrying too much about different things: 0 = Not at all Trouble relaxin = Not at all Being so restless that it is hard to sit still: 0 = Not at all Becoming easily annoyed or irritable: 0 = Not at all Feeling afraid as if something awful might happen: 0 = Not at all Total JOSÉ LUIS-7 score (0-4 normal; 5-9 mild; 10-14 moderate; 15-21 severe): 0 Source: Developed by Drs. Juan Carlos Watters, Moon Franks, Lan Dickey and colleagues, with an educational nancy from [employer]. JOSÉ LUIS-7 Assessment Billing JOSÉ LUIS-7 Assessment Tool: JSOÉ LUIS-7 Assessment 81813 Review of Systems Const Denies poor appetite and Denies weakness Eyes Denies no additional complaints ENT Reports Normal hearing present, Denies dizziness, Denies nasal congestion, Denies tinnitus and Denies sore throat Card Denies chest pain, Denies syncope, Denies rapid heart rate and Denies dyspnea Resp Denies cough and Denies dyspnea GI Denies change in stool character, Reports constipation, Denies diarrhea, Denies nausea and Denies vomiting Denies dysuria and Denies urinary frequency Neuro Reports Normal hearing present, Denies confusion, Denies dizziness, Denies syncope and Denies weakness Psych Denies confusion Physical exam (Primary Care) Vital Signs: Last Vital Signs Pulse 63 04/01/24 16:11 BP 124/78 07/30/23 16:11 Pulse Ox 98 07/30/23 16:11 Oxygen Delivery Method Room Air 07/30/23 16:11 BMI result Body Mass Index 36.0 Tobacco/Smoking Status: Tobacco use Status Tobacco use date assessed 07/30/23 07/30/23 16:12 Patient Tobacco Use Status Never used Tobacco 07/30/23 16:12 e-Cigarette/Vaping Use Never Used 07/30/23 16:12 PHQ-9: PHQ-9 Score PHQ-9: Total score 0 07/30/23 16:46 Depression Screening Interpretation: Negative Thrive Assessment: Date of Thrive Assessment Date Thrive assessed 07/30/23 07/30/23 16:12 Currently or been in a relationship where the following occur: no concerns reported Const General: No confusion Orientation/consciousness: No confusion HENMT Head: Yes normocephalic Ears: external ears normal and TM's normal bilaterally Face and sinus: Yes normal facial exam Mouth: moist mucous membranes Throat: Yes tonsils normal Eyes Conjunctivae: conjunctivae normal Pupils: Equal, round and reactive pupils present and Pupil accommodation reflex normal Direct Ophthalmoscopy: normal light reflex Neck Neck: No lymphadenopathy Thyroid: Thyroid normal Chest Chest palpation & inspection: normal inspection of the chest Resp Effort & Inspection: normal respiratory effort and no audible wheezes Auscultation: clear to auscultation bilaterally, no crackles, no wheezes and lung sounds not diminished Cardio Rate: regular rate Rhythm: regular rhythm Peripheral pulses: radial pulses present and dorsalis pedis present GI Palpation (GI): no masses Auscultation: normal bowel sounds and normoactive bowel sounds Rectal Exam - Male: Yes deferred Skin General skin exam: no rashes or lesions noted Rashes: no rashes Neuro General: No confusion Cranial nerves: Yes Equal, round and reactive pupils present and Yes Normal hearing present Cognition (Neuro): normal cognition Gait exam (Neuro): Normal gait present Motor exam (neuro): 5/5 motor strength present throughout Deep tendon reflexes (DTR's): Right brachioradialis reflex intensity grade: 2+, Left brachioradialis reflex intensity grade: 2+, Right patellar reflex intensity grade: 2+ and Left patellar reflex intensity grade: 2+ Extrem General: No edema Assessment and Plan Assessment & Plan (1) Annual physical exam: Code(s): Z00.00 - Encounter for general adult medical examination without abnormal findings (2) Stented coronary artery: Comment: [place], September 2007, proximal LAD bare metal stent in overlapping bare metal stent in OM1. Inferior STEMI October 2008, bare metal stent to proximal RCA. Noted to have severe ISR in LAD and OM1 stents Code(s): Z95.5 - Presence of coronary angioplasty implant and graft Plan: Control the cholesterol, weight, blood pressure, continue with aspirin (3) Hypertension: Code(s): I10 - Essential (primary) hypertension Qualifiers: Hypertension type: essential hypertension Qualified Code(s): I10 - Essential (primary) hypertension Plan: Blood pressure on metoprolol 50 mg once a day (4) Hypercholesterolemia: Code(s): E78.00 - Pure hypercholesterolemia, unspecified Plan: Avoid fried foods, chicken skin, eggs, butter margarine, pastries and meat. Be it pork or beef they have a lot of cholesterol on the Repatha. Repeat blood work requested (5) Obesity (BMI 30-39.9): Code(s): E66.9 - Obesity, unspecified Plan: Diet and exercise (6) GERD (gastroesophageal reflux disease): Code(s): K21.9 - Gastro-esophageal reflux disease without esophagitis Qualifiers: Esophagitis presence: without esophagitis Qualified Code(s): K21.9 - Gastro-esophageal reflux disease without esophagitis Plan: Avoid the foods that causes that usually spicy foods, tomato products, juices, coffee, soda and foods that your sensitive to. After eating do not lie down, allow 3-4 hours before in lie down. And keep the head of bed above 30 degrees to avoid the acid from going up. Orders: Orders Free T4 (Free Thyroxine) Today Z95.5 - Presence of coronary angioplasty implant and graft Thyroid Stimulating Hormone Today Z95.5 - Presence of coronary angioplasty implant and graft Complete Blood Count Auto Diff Today Z95.5 - Presence of coronary angioplasty implant and graft Comprehensive Met. Panel Today Z95.5 - Presence of coronary angioplasty implant and graft Lipid Panel Today E78.00 - Pure hypercholesterolemia, unspecified, Z95.5 - Presence of coronary angioplasty implant and graft Vitamin B12 and Folate Today Z95.5 - Presence of coronary angioplasty implant and graft Prostate Specific Antigen Scr Today Z95.5 - Presence of coronary angioplasty implant and graft Medications: New semaglutide (weight loss) (Wegovy) administer weeks 1 through 4 of therapy 0.25 mg (0.5 mL) subcut QWEEK 2 mL 0RF E66.9 - Obesity, unspecified Coding Level of Care Code Est Pt Prev Care 40-64y(45573) Diagnoses Annual physical exam Z00.00 Stented coronary artery Z95.5 Essential hypertension I10 Hypertension type: essential hypertension Hypercholesterolemia E78.00 Obesity (BMI 30-39.9) E66.9 Gastroesophageal reflux disease without esophagitis K21.9 Esophagitis presence: without esophagitis Additional Codes JOSÉ LUIS-7 Assessment Billing - JOSÉ LUIS-7 Assessment Tool: JOSÉ LUIS-7 Assessment [id number] ([id number])
== END 2023-07-30 17:29 | disposition home or self-care (01) ==
PROVIDERS: Visit Provider Internal Medicine
DX: Z00.00 Encounter for general adult medical examination without abnormal findings (principal); Z95.5 Presence of coronary angioplasty implant and graft; Z68.36 Body mass index [BMI] 36.0-36.9, adult; E78.00 Pure hypercholesterolemia, unspecified; I10 Essential (primary) hypertension; K21.9 Gastro-esophageal reflux disease without esophagitis; E66.9 Obesity, unspecified
CPT/HCPCS: 99396

== ENCOUNTER 2023-09-17 10:34 | Outpatient (REF) | payer BC, SELFPAY ==
[2023-09-17 10:54] LABS: MANUAL DIFF FLAG NO
[2023-09-17 11:20] LABS: Basophils Percent Auto 0.7 % (0-2); Eosinophils Absolute Auto 0.1 X10*3/uL (0.0-0.4); Eosinophils Percent Auto 1.5 % (0-4); Hematocrit 47.9 % (42.0-52.0); Hemoglobin 16.1 g/dl (14.0-18.0); Imm Gran Abs Auto 0.02 X10*3/uL (0.00-0.03); Imm Gran Pct Auto 0.4 % (0.0-0.4); Lymphocytes Absolute Auto 1.7 X10*3/uL (1.2-4.9); Lymphocytes Percent Auto 31.2 % (20-40); Mean Corpuscular HGB Conc 33.6 g/dl (31.0-36.0); Mean Corpuscular Hemoglobin 31.5 pg (27.0-33.0); Mean Corpuscular Volume 93.7 fL (80.0-98.0); Mean Platelet Volume 9.6 fL (9.4-12.4); Monocytes Absolute Auto 0.5 X10*3/uL (0.1-1.2); Monocytes Percent Auto 9.3 % (2-11); Neutrophils Percent Auto 56.9 % (45-73); Platelet Count 251 X10*3/uL (160-400); Red Blood Count 5.11 X10*6/uL (4.60-5.80); Red Cell Distribution Width 13.1 % (11.0-16.0); White Blood Count 5.4 X10*3/uL (4.8-10.8)
[2023-09-17 12:01] LABS: Alanine Aminotransferase 38 U/L (0-40); Albumin Level 4.1 g/dL (3.5-5.0); Alkaline Phosphatase 63 U/L (39-117); Anion Gap 11 (12-20); Aspartate Amino Transferase 25 U/L (5-37); Bilirubin Total 0.8 mg/dL (0.0-1.0); Blood Urea Nitrogen 12 mg/dL (9-16); Calcium 9.7 mg/dL (8.4-10.2); Carbon Dioxide 29 mmol/L (22-29); Chloride 105 mmol/L (96-108); Cholesterol 79 mg/dL (<200); Estimated Glomerular Filt Rate > 60; Glucose Random 85 mg/dL (60-115); HDL Cholesterol 41 mg/dL (>40); LDL Cholesterol Calculated 23 mg/dL (<100); Potassium 4.8 mmol/L (3.3-5.1); Sodium 140 mmol/L (135-145); Total Protein 7.2 g/dL (6.5-8.0); Triglycerides 77 mg/dL (<150)
[2023-09-17 12:19] LABS: Free T4 (Free Thyroxine) 0.76 ng/dL (0.71-1.85); Thyroid Stimulating Hormone 1.72 uIU/mL (0.32-4.0)
[2023-09-17 12:29] LABS: Folate 11.6 ng/mL (> or = 4.0); Prostate Specific Antigen Scr 0.25 ng/mL (<0.05-4.0); Vitamin B12 430 pg/mL (200-900)
== END 2023-09-17 10:35 | disposition home or self-care (01) ==
LOC: HO.LAB 10:34
PROVIDERS: PCP Internal Medicine; Visit Provider Internal Medicine
DX: Z95.5 Presence of coronary angioplasty implant and graft (principal); E78.00 Pure hypercholesterolemia, unspecified; Z12.5 Encounter for screening for malignant neoplasm of prostate
CPT/HCPCS: 36415; 80053; 80061; 82607; 82746; 84153; 84439; 84443; 85025

== ENCOUNTER 2023-11-20 15:14 | Outpatient (AMB) | payer BC, SELFPAY ==
--- NOTE | 2023-11-20 15:16 | MHC.OFFVIS ---
Vital Signs 11/20/23 15:17 Height 5 ft 9 in Weight 242 lb 8.136 oz BMI 35.8 BP 120/80 Blood Pressure Location Lt brachial Position Sitting Pulse 68 Intake Visit Reasons: 1 yr f/up Intake Note: 1 year follow-up with ekg feeling good Culinary Manager Required: No Allergies atorvastatin [Lipitor] Adverse Reaction (Unknown, Verified 07/30/23 16:11) Muscle cramps ezetimibe [Zetia] Adverse Reaction (Unknown, Verified 07/30/23 16:11) Muscle cramps rosuvastatin [Crestor] Adverse Reaction (Unknown, Verified 07/30/23 16:11) Muscle cramps Statins Support Adverse Reaction (Unknown, Uncoded 07/30/23 16:11) Muscle cramps Medication List - Last Reconciled 11/20/23 by Stephon Rodriguez MD aspirin (Adult Aspirin Regimen) 81 mg PO DAILY coenzyme Q10 (CoQ-10) 30 mg PO DAILY metoprolol succinate ER 50 mg PO DAILY Repatha SureClick (evolocumab) 140 mg subcut Q2W NS sildenafil (Viagra) 100 mg PO DAILY PRN HPI Comments Details: Edy comes for follow up. He has been maintaining his activity irregular. Denies any exertional chest pain or shortness of breath. Denies any palpitations, lightheadedness, syncope. No heart failure symptoms. Last LDL was 23 mg/dL well optimized. Having tough time losing his abdominal fat. Tolerating his medication well. PFSH Medical History Sciatica Polysubstance abuse Vitamin D deficiency Hypercholesterolemia Hypertension Obesity (BMI 30-39.9) Erectile dysfunction GERD (gastroesophageal reflux disease) Coronary artery disease Alcohol abuse Surgical History Hx of cardiac cath Hx of colonoscopy Stented coronary artery History of surgery Family History Father Myocardial infarction Hypertension CVD (cardiovascular disease) Mother Hypertension Maternal Aunt Breast cancer Brother CVD (cardiovascular disease) Social History Housing: [facility] Alcohol intake: current Alcohol intake frequency: a few times a week Alcohol type: beer Comment: 2 days weekend 6 beers Patient Tobacco Use Status: Never used Tobacco e-Cigarette/Vaping Use: Never Used Second Hand Smoke Exposure: No service: No Current occupational status: employed Cognitive needs: No Hearing needs: No Vision needs: No Review of Systems Const Denies chills, Denies fatigue, Denies fever(s), Denies frequent falls, Denies weakness, Denies weight gain and Denies weight loss ENT Denies dizziness Card Denies chest pain, Denies leg edema, Denies lightheadedness, Denies palpitations, Denies dyspnea, Denies dyspnea on exertion, Denies orthopnea and Denies other (loss of consciousness) Resp Denies cough, Denies dyspnea and Denies dyspnea on exertion GI Denies hematochezia and Denies change in stool character Musc Denies abnormal gait, Denies muscle weakness, Denies numbness, Denies radiating pain into limb and Denies tingling Neuro Denies abnormal gait, Denies dizziness, Denies frequent falls, Denies numbness, Denies tingling and Denies weakness Endo Denies fatigue and Denies palpitations Physical Exam Vital Signs: Last Vital Signs Pulse 68 11/20/23 15:17 BP 120/80 11/20/23 15:17 BMI result Body Mass Index 35.8 Const Other: muscular build General: cooperative, healthy appearing, comfortable and no acute distress Orientation/consciousness: patient oriented x3 Neck Neck: Yes normal visual inspection Resp Effort & Inspection: normal respiratory effort Auscultation: clear to auscultation bilaterally, no crackles, no rales, no rhonchi and no wheezes Cardio Jugular venous distension: no JVD Rate: regular rate Rhythm: regular rhythm Heart sounds: S1 normal heart sound present, S2 normal heart sound present, no gallops, no murmurs and no rubs Neuro General: patient oriented x3 Extrem General: Yes normal to inspection Psych Appearance: grossly normal Mental Status: mental status grossly normal Speech and movement: Normal speech and movement present Office Procedures EKG Details: EKG shows normal sinus rhythm with diffuse T-wave inversions in inferior and lateral leads suggestive of ischemia. T-wave inversions are slightly more prominent in the inferior leads [id number], Complete Assessment & Plan Assessment & Plan (1) Coronary artery disease: Comment: Premature atherosclerosis. Code(s): I25.10 - Atherosclerotic heart disease of [place] coronary artery without angina pectoris Category: Medical Qualifiers: Coronary Disease-Associated Artery/Lesion type: [place] artery [place] vs. transplanted heart: [place] heart Associated angina: without angina Qualified Code(s): I25.10 - Atherosclerotic heart disease of [place] coronary artery without angina pectoris Plan: Very premature atherosclerosis in his middle-aged man with very remote prior intervention. Currently not having any symptoms with the EKGs are concerning for ischemia. Given remote nature of his coronary disease as well as worsening EKG was rule out asymptomatic myocardial ischemia and progressive atherosclerosis. Would suggest exercise myocardial perfusion imaging. Continue aggressive medical therapy otherwise. Continue low-dose aspirin therapy. Continue aggressive blood pressure control. He has been tolerating Repatha very well with LDL extremely well optimized. Continue the therapy. (2) Hypertension: Code(s): I10 - Essential (primary) hypertension Category: Medical Qualifiers: Hypertension type: essential hypertension Qualified Code(s): I10 - Essential (primary) hypertension Plan: Hypertension which is currently well optimized. Noted EKG changes which could represent hypertensive heart disease with repolarization will suggest echocardiogram in near future. Continue aggressive blood pressure management which is currently well optimized advised to monitor blood pressure at home intermittently. Target goal blood pressure less than 130/84. Will follow up in the clinic in 1 year's time otherwise. Thank you for allowing me to partake in his care Orders: Orders CA stress test Today I25.10 - Atherosclerotic heart disease of [place] coronary artery without angina pectoris NM cardiolite stress test 2 Weeks I25.10 - Atherosclerotic heart disease of [place] coronary artery without angina pectoris, R07.9 - Chest pain, unspecified CA echo transthoracic complete Today I25.10 - Atherosclerotic heart disease of [place] coronary artery without angina pectoris Coding Level of Care Code Est Pt Level 4 (72620) Diagnoses Coronary artery disease involving [place] coronary artery of [place] heart without angina pectoris I25.10 Coronary Disease-Associated Artery/Lesion type: [place] artery [place] vs. transplanted heart: [place] heart Associated angina: without angina Essential hypertension I10 Hypertension type: essential hypertension CPT Codes EKG - CPT: 45515-[id number], Complete ([id number])
[2023-11-20 15:17] VITALS: BP 120/80; PULSE 68; BMI 35.8
== END 2023-11-20 15:42 | disposition home or self-care (01) ==
PROVIDERS: PCP Internal Medicine; Visit Provider Internal Medicine Cardiovascular Disease
DX: I25.10 Atherosclerotic heart disease of native coronary artery without angina pectoris (principal); I10 Essential (primary) hypertension
CPT/HCPCS: 93010; 99214

== ENCOUNTER → 2023-11-20 15:14 | Outpatient (BNVA) | payer BC, SELFPAY | PROVIDERS: PCP Internal Medicine; Visit Provider Internal Medicine Cardiovascular Disease | DX: I25.10 Atherosclerotic heart disease of native coronary artery without angina pectoris (principal); I10 Essential (primary) hypertension; Z79.82 Long term (current) use of aspirin | CPT/HCPCS: 93005 ==

== ENCOUNTER 2023-12-11 14:49 | Outpatient (AMB) | payer BC, SELFPAY ==
[2023-12-11 14:51] VITALS: BP 124/76; PULSE 62; O2SAT 98; BMI 35.9
--- NOTE | 2023-12-11 14:51 | A.OFFPC_ITS ---
Vital Signs 12/11/23 14:51 Height 5 ft 9 in Weight 243 lb 0.4 oz BMI 35.9 BP 124/76 Blood Pressure Location Lt brachial Position Sitting Pulse 62 Pulse Source Pulse Oximeter Pulse Oximetry (%) 98 Oxygen Delivery Method Room Air Intake Visit Reasons: cad, obesity Director Of Home Care Hospice Required: No Allergies atorvastatin [Lipitor] Adverse Reaction (Unknown, Verified 12/11/23 14:52) Muscle cramps ezetimibe [Zetia] Adverse Reaction (Unknown, Verified 12/11/23 14:52) Muscle cramps rosuvastatin [Crestor] Adverse Reaction (Unknown, Verified 12/11/23 14:52) Muscle cramps Statins Support Adverse Reaction (Unknown, Uncoded 12/11/23 14:52) Muscle cramps Tobacco use date assessed: 07/30/23 Dental Screening Dental Screen Date: 07/30/23 HPI cad, obesity HPI Details 63-year-old obese male with coronary art marie disease hypertension hypercholesterolemia GERD last seen in July 2023 had physical at that time. Patient's colonoscopy is up-to-date 09/16/2021.. Patient did see Cardiology October 2023 patient has been advised exercise myocardial perfusion imaging(12/26/2023 ) Due to concerns on EKG. Advised continue to follow up with echocardiogram. PFSH Medical History Sciatica Polysubstance abuse Vitamin D deficiency Hypercholesterolemia Hypertension Obesity (BMI 30-39.9) Erectile dysfunction GERD (gastroesophageal reflux disease) Coronary artery disease Alcohol abuse Surgical History Hx of cardiac cath Hx of colonoscopy Stented coronary artery History of surgery Family History Father Myocardial infarction Hypertension CVD (cardiovascular disease) Mother Hypertension Maternal Aunt Breast cancer Brother CVD (cardiovascular disease) Social History Housing: Condominium Alcohol intake: current Alcohol intake frequency: a few times a week Alcohol type: beer Comment: 2 days weekend 6 beers Patient Tobacco Use Status: Never used Tobacco e-Cigarette/Vaping Use: Never Used Second Hand Smoke Exposure: No service: No Current occupational status: employed Cognitive needs: No Hearing needs: No Vision needs: No Questionnaire Thrive Questionnaire Date Thrive assessed: 07/30/23 AUDIT C Alcohol Use Questionnaire (AUDIT-C) 1. How often do you have a drink containing alcohol?: 2-3 times a week 2. How many drinks containing alcohol do you have on a typical day when you are drinking?: 3 or 4 3. How often do you have six or more drinks on one occasion?: Never Total Score: 4 JOSÉ LUIS-7 AMB Questionnaire JOSÉ LUIS-7 Date JOSÉ LUIS - 7 assessed: 07/30/23 Source: Developed by Drs. Juan Carlos Watters, Moon Franks, Lan Dickey and colleagues, with an educational nancy from [employer]. Physical exam (Primary Care) Vital Signs: Last Vital Signs Pulse 62 12/11/23 14:51 BP 124/76 12/11/23 14:51 Pulse Ox 98 12/11/23 14:51 Oxygen Delivery Method Room Air 12/11/23 14:51 BMI result Body Mass Index 35.9 Tobacco/Smoking Status: Tobacco use Status Tobacco use date assessed 07/30/23 12/11/23 14:52 Patient Tobacco Use Status Never used Tobacco 12/11/23 14:52 e-Cigarette/Vaping Use Never Used 12/11/23 14:52 Thrive Assessment: Date of Thrive Assessment Date Thrive assessed 07/30/23 12/11/23 14:52 Const General: alert; No acute distress Eyes Conjunctivae: conjunctivae normal Resp Auscultation: clear to auscultation bilaterally Cardio Rate: regular rate Rhythm: regular rhythm GI Inspection: Yes normal to inspection Extrem General: Yes normal to inspection and No edema Assessment and Plan Assessment & Plan (1) Stented coronary artery: Comment: [place], September 2007, proximal LAD bare metal stent in overlapping bare metal stent in OM1. Inferior STEMI October 2008, bare metal stent to proximal RCA. Noted to have severe ISR in LAD and OM1 stents Code(s): Z95.5 - Presence of coronary angioplasty implant and graft Plan: Concern about EKG changes and Cardiology decided to have myocardial perfusion imaging (2) Hypercholesterolemia: Code(s): E78.00 - Pure hypercholesterolemia, unspecified Plan: Avoid fried foods, chicken skin, eggs, butter margarine, pastries and meat. Be it pork or beef they have a lot of cholesterol on Repatha LDL goal of less than 70 and triglyceride of less than 150. (3) Hypertension: Code(s): I10 - Essential (primary) hypertension Qualifiers: Hypertension type: essential hypertension Qualified Code(s): I10 - Essential (primary) hypertension Plan: Continue with blood pressure medication. Decrease salt intake and exercise on metoprolol 50 mg once a day (4) Obesity (BMI 30-39.9): Code(s): E66.9 - Obesity, unspecified Plan: Diet and exercise (5) Trigger finger of left hand: Code(s): M65.30 - Trigger finger, unspecified finger Plan: orthopedic referral done Orders: Referrals Orthopedics Referral M65.30 - Trigger finger, unspecified finger Coding Level of Care Code Est Pt Level 4 (33072) Diagnoses Stented coronary artery Z95.5 Hypercholesterolemia E78.00 Essential hypertension I10 Hypertension type: essential hypertension Obesity (BMI 30-39.9) E66.9 Trigger finger of left hand M65.30
== END 2023-12-11 15:08 | disposition home or self-care (01) ==
PROVIDERS: PCP Internal Medicine; Visit Provider Internal Medicine
DX: E78.00 Pure hypercholesterolemia, unspecified (principal); E66.9 Obesity, unspecified; Z95.5 Presence of coronary angioplasty implant and graft; Z68.35 Body mass index [BMI] 35.0-35.9, adult; I10 Essential (primary) hypertension; M65.30 Trigger finger, unspecified finger
CPT/HCPCS: 99214

== ENCOUNTER → 2023-12-26 07:50 | Outpatient (REF) | payer BC, SELFPAY ==
--- NOTE | ~2023-12-26 | NM_ITS ---
EXERCISE MYOCARDIAL PERFUSION STUDY INDICATION: Coronary artery disease TECHNIQUE: The patient was brought in for an exercise perfusion study on 12/26/2023. Patient performed exercise as per Edenilson protocol and was injected 35 mCi of sestamibi once target heart rate was achieved. Images were obtained using the SPECT gamma camera interlaced with the gating device. Images were obtained in supine position. Resting perfusion study was performed on 12/28/2023. Patient was administered 35 mCi of sestamibi intravenously at rest. Images were then obtained in supine position. Total DLP 106 mGy-cm. Images were processed with the software and compared side to side in short axis, horizontal long axis and vertical long axis views. FINDINGS: Raw aquisition reviewed. The stress perfusion study showed markedly reduced tracer uptake in the basal to mid part of inferior wall. There is some improvement with CT attenuation correction and hence suspect components of diaphragmatic attenuation artifact. There is also mildly reduced tracer uptake in the distal part of the anterior wall. No significant change with CT attenuation correction. The gated study shows normal LV systolic function with calculated LVEF of 64%. LV cavity is normal in size. The gated study shows reduced contractility in the basal to mid inferior wall. Resting study shows diminished tracer uptake in the basal to mid part of inferior wall and adjacent part of inferior septum. There is also reduced uptake in the distal portion of anterior wall. There is improvement with CT attenuation correction and has grade of components of diaphragmatic and soft tissue attenuation artifact. Gating at rest reveals reduced inferior wall contractility with ejection fraction at 62%. The findings are consistent with fixed perfusion defect in the basal to mid inferior/inferoseptal wall, which is likely infarct. Fixed perfusion defect in the distal part of anterior wall, possibly artifactual and less likely infarct. No clear reversible defects. NM/NM cardiolite stress test IMPRESSION: 1. Myocardial perfusion imaging study shows prior infarct in the basal to mid inferior/inferoseptal wall. Suspect artifactual defect in the distal part of the anterior wall and less likely infarct. No evidence of ischemia. 2. Gated LVEF is 64% during stress and 62% during rest. Correlate with echocardiogram. 3. Transient ischemic dilatation not present. EKG component of the test reported separately. Electronically signed by: Harmeet Garrison MD 01/01/2024 09:42 AM EDT
--- NOTE | 2023-12-26 07:53 | CA_ITS ---
Acquisition Time: 2023-12-26 08:03:00 Total Exercise Time: 00:08:06 Test Indications: ABN EKG Medications: SEE H Protocol: GAGAN Max HR: 137 BPM 86% of Pred: 159 BPM Max BP: 240/102 mmHG Max Work Load: 10.1 METS Exercise stress test exercise 8 min 6 sec of Gagan protocol achieving 85% MPHR, with mild to moderate SOB, without chest discomfort, with isolated PVCs, with hypertensive response to exercise - max BP 240/102 without any symptoms, without EKG changes.Breathing returned to baseline with rest. Nuclear images pending. Test reviewed with Dr. Rodriguez Referred By: Stephon Rodriguez Overread By: Naomi Schmid
== END ==
LOC: HO.CARD 07:50
PROVIDERS: PCP Internal Medicine; Visit Provider Internal Medicine Cardiovascular Disease
DX: R07.9 Chest pain, unspecified (principal); I25.10 Atherosclerotic heart disease of native coronary artery without angina pectoris
CPT/HCPCS: 78452; 93017; A9500

== ENCOUNTER → 2023-12-26 07:53 | Outpatient (BNV) | payer BC, SELFPAY | PROVIDERS: PCP Internal Medicine; Visit Provider Nurse Practitioner | DX: I25.10 Atherosclerotic heart disease of native coronary artery without angina pectoris (principal) | CPT/HCPCS: 78452; 93016; 93018 ==

== ENCOUNTER 2024-01-07 14:26 | Outpatient (AMB) | payer BC, SELFPAY ==
--- NOTE | 2024-01-07 14:40 | MHC.OFFVIS ---
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 Patient reports his left index finger is no longer locking however he is having pain that starts in his left index finger and shoots up his arm into the back of his neck. He reports these symptoms are daily and come and go throughout the day and interfere with his sleep. He expresses no particular activity causes this pain and he has limited what he does with the left hand to avoid causing extra pain. He reports when he was a kid he was jumping up stairs, when he placed his hands down he had a nail that stuck into the base of his middle finger, had no treatment for this, healed on its own. Tries advil to sleep better when it is bad. 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 Patient states that at 1 point, his left index finger was locking catching significantly, however this has resolved prior to evaluation. Now however, the patient reports that he is experiencing significant pain in his left index finger that radiates all the way up to his neck. Patient states that this pain occurs every day, and then it is significantly impeding his ability to work as an software engineer web applications, as well as his activities of daily living. Patient also reports some intermittent numbness and tingling in this digit. The patient states that he has been limiting the range of motion of his left hand in order to prevent this pain. No other acute complaints or concerns at this time. [facility] Medical History Sciatica Polysubstance abuse Vitamin D deficiency Hypercholesterolemia Hypertension Obesity (BMI 30-39.9) Erectile dysfunction GERD (gastroesophageal reflux disease) Coronary artery disease Alcohol abuse Surgical History Hx of cardiac cath Hx of colonoscopy Stented coronary artery History of surgery Family History Father Myocardial infarction Hypertension CVD (cardiovascular disease) Mother Hypertension Maternal Aunt Breast cancer Brother CVD (cardiovascular disease) Social History (Updated 01/07/24 @ 14:48 by AMBER Cordon) [facility] Alcohol intake: current Alcohol intake frequency: a few times a week Alcohol type: beer Comment: 2 days weekend 6 beers Patient Tobacco Use Status: Never used Tobacco e-Cigarette/Vaping Use: Never Used Second Hand Smoke Exposure: No service: No Current occupational status: employed 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 Neuro: Normal sensation of the tips of all digits of the left hand at this time Vascular: Cap refill brisk Pain: Patient reports mild diffuse tenderness to palpation about the left index finger No other tenderness to palpation of the left hand and wrist noted ROM: Patient is able to make a closed fist and extend all digits of the left hand fully, although he states he experiences some stiffness with this No visible or palpable locking or catching of the left index finger Skin: No lacerations or abrasions. General: No ecchymosis, erythema, or evidence of infection. Psych: Appears grossly normal Affect normal Attitude cooperative Assessment & Plan Assessment & Plan (1) Pain in finger of left hand: Code(s): M79.645 - Pain in left finger(s) Category: Medical (2) Numbness and tingling in left hand: Code(s): R20.0 - Anesthesia of skin; R20.2 - Paresthesia of skin Category: Medical Plan 1. Left index finger pain radiating into the neck 2. Left hand numbness and tingling Symptoms intermittent, but daily, worse at night At this time, patient is referred for EMG and nerve conduction study to assess the health of the nerves of the left upper extremity Patient is advised that, due to the nature of the symptoms, it was possible that nerve conduction study will reveal that the pain is not coming from his hand or wrist, rather from the neck Patient is informed that at that time, we will need to refer out to a different specialist for treatment Patient understands this and is amenable to this plan Patient will follow-up after EMG and nerve conduction study for results review and discussion of further treatment options, sooner with any acute concerns Orders: Orders NE nerve conduction velocity 01/07/24 R20.0 - Anesthesia of skin, R20.2 - Paresthesia of skin NE electromyogram (EMG) 01/07/24 R20.0 - Anesthesia of skin, R20.2 - Paresthesia of skin Coding Level of Care Code New Pt Level 3 (59466) Diagnoses Pain in finger of left hand M79.645 Numbness and tingling in left hand R20.0; R20.2
== END 2024-01-07 15:10 | disposition home or self-care (01) ==
PROVIDERS: PCP Internal Medicine
DX: M79.645 Pain in left finger(s) (principal); R20.0 Anesthesia of skin; R20.2 Paresthesia of skin
CPT/HCPCS: 99203

== ENCOUNTER → 2024-01-07 14:26 | Outpatient (BNVA) | payer BC, SELFPAY | PROVIDERS: PCP Internal Medicine ==

== ENCOUNTER → 2024-01-18 14:55 | Outpatient (REF) | payer BC, SELFPAY ==
--- NOTE | 2024-01-18 14:58 | CA_ITS ---
Transthoracic Echocardiogram Patient (Last, First, Middle): Edy Agosto R Gender: Male Date of : 1960 Age: 63 Procedure Date: 01/18/2024 Procedure Type: Transthoracic Echocardiogram Location: OP Height: 175. cm Weight: 106.6 kg BSA: 2.21 m2 Heart Rate: 69 bpm BP: 160 / 90 mmHg [place] Operator: ANNIKA Referring MD: Stephon Rodriguez MD Hide Handler: Stephon Rodriguez MD Symptoms: I25.10 - Atherosclerotic heart disease of [place] coronary artery without... Study Quality: Technically Difficult ECG Rhythm: Sinus with extra beats Conclusions: - 1. Technically limited study 2. Normal LV ejection fraction of 60 65% with mild LVH 3. Poor visualization of cardiac valves with normal cardiac valvular Dopplers Findings Procedure Information Contrast agent, definity, is being given per protocol without apparent complications. Left Ventricle Normal left ventricular size and systolic function. There is mildly increased left ventricular wall thickness. The visually estimated ejection fraction is between 60-65%. Spectral Doppler is indicative of a normal filling pattern. Right Ventricle Normal right ventricular cavity size and systolic function. Atria The left atrium is normal in size. There is no evidence of interatrial shunt. The right atrium is normal in size. Aortic Valve The aortic valve was not well visualized. There is no aortic valve stenosis. There is no aortic valve regurgitation. Mitral Valve The mitral valve was not well visualized. There is no mitral valve regurgitation. There is no mitral valve stenosis. Pulmonic Valve The pulmonic valve was not well visualized. Tricuspid Valve The tricuspid valve was not well visualized. The right ventricular systolic pressure is normal. Normal right atrial pressure. Great Vessels The aorta was not well visualized. The pulmonary artery was not well visualized. Venous The inferior vena cava is normal in size. Pericardium/Pleural The pericardium was not well visualized. Measurements 2D Linear Measurements IVSd: 1.27 0.6-0.9/0.6-1.0 cm LVIDd: 4.73 3.9-5.3/4.2-5.9 cm LVIDd Index: 2.14 2.4-3.2/2.2-3.1 cm/m2 LVIDs: 3.30 2.0-3.6 cm LVPWd: 1.30 0.7-1.1 cm LA Diam: 4.40 2.7-3.8/3.0-4.0 cm LAIDs Index: 1.99 1.5-2.3 cm/m2 LV Mass: 294.52 67-162/88-224 g LV Mass Index: 133.27 43-95/49-115 g/m2 LVOT Diam: 2.00 3.0+(-)1.3 cm 2D Systolic Function EF 4C: 67.50 >55% EF 2C: 56.50 >55% EF BiP: 64.70 >55% Mitral Valve MV Pk E: 0.93 MV PK A: 0.80 MV Decel Time: 201.00 E/A: 1.20 E'Lateral: 10.70 E'Medial: 6.64 E/E' Med: 13.90 E/E' Lat: 8.60 PHT: 59.00 MVA PHT: 3.73 Decel Frederick: 4.61 Aortic Valve AoV Pk Bulmaro: 1.37 AoV Mn Bulmaro: 0.87 AoV VTI: 0.24 AoV Pk Grad: 8.00 Aov Mn Grad: 4.00 BRAXTON Cont.VTI: 3.06 LVOT LVOT Pk Bulmaro: 1.13 LVOT Mn Bul[place]o: 0.78 LVOT VTI: 0.23 LVOT Pk Grad: 5.00 LVOT Mn Grad: 3.00 LVOT Diam: 2.00 LVOT Area: 3.14 Diastolic Function MV Pk E: 0.93 MV Pk A: 0.80 E/A: 1.20 E'Medial: 6.64 E/E' Med: 13.90 E' Laterial: 10.70 E/E' Lat: 8.60 Right Ventricle TAPSE (mm): 19.30 TVS' Bulmaro: 10.60 Tricuspid Valve TR Pk Bulmaro: 1.19 TR Pk Grad: 6.00 RA Press: 3.00 RVSP: 9.00 Great Vessels Aorta Sinus of Valsalva: 3.50 2.0-3.5 cm Ao Asc: 3.40 2.1-3.4 cm Pulmonary Valve PV Pk Bulmaro: 0.72 Peak PV Grad: 2.00 Updated in Other Vendor System with Status of Final Stephon Rodriguez MD electronically signed on 01/19/2024 9:30:58 AM with status of Final
== END ==
LOC: HO.CARD 14:55
PROVIDERS: PCP Internal Medicine; Visit Provider Internal Medicine Cardiovascular Disease
DX: I25.10 Atherosclerotic heart disease of native coronary artery without angina pectoris (principal)
CPT/HCPCS: 93306; Q9957

== ENCOUNTER → 2024-01-18 14:58 | Outpatient (BNV) | payer BC, SELFPAY | PROVIDERS: PCP Internal Medicine; Visit Provider Internal Medicine Cardiovascular Disease | DX: I25.10 Atherosclerotic heart disease of native coronary artery without angina pectoris (principal) | CPT/HCPCS: 93306 ==

== ENCOUNTER 2024-01-25 13:48 | Outpatient (REF) | payer BC, SELFPAY ==
--- NOTE | 2024-01-25 13:51 | EMG_ITS ---
Chief complaint: Started out as trigger finger on left 2nd digit. He does have numbness in his left thumb. Also complaining of left upper extremity/shoulder pain. Reason for referral: Evaluate for Carpal Tunnel Syndrome Referred by: Meng MARES Procedure done: Left upper extremity NCS/EMG Precautions and/or limitations: None The limb temperature was monitored continuously and remained between 32-36 degrees C during the performance of the NCS. Nerve Conduction Studies Anti Sensory Summary Table ?Stim Site NR Onset (ms) Norm Onset (ms) Peak (ms) Norm Peak (ms) O-P Amp (?V) Norm O-P Amp Site1 Site2 Delta-0 (ms) Dist (cm) Bulmaro (m/s) Norm Bulmaro (m/s) Left Median Anti Sensory (2nd Digit) Wrist ? 3.5 4.5 <3.6 21.0 >10 Wrist 2nd Digit 3.5 14.0 40 Left Ulnar Anti Sensory (5th Digit) Wrist ? 2.5 3.3 <3.7 10.7 >15.0 Wrist 5th Digit 2.5 14.0 56 Motor Summary Table ?Stim Site NR Onset (ms) Norm Onset (ms) O-P Amp (mV) Norm O-P Amp iAmp (mV) Amp (1st) (%) Site1 Site2 Delta-0 (ms) Dist (cm) Bulmaro (m/s) Norm Bulmaro (m/s) Left Median Motor (Abd Poll Brev) Wrist ? 4.4 <3.9 7.4 >4.5 8.8 100.0 Elbow Wrist 4.5 22.0 49 >45 Elbow ? 8.9 6.8 8.2 91.9 Left Ulnar Motor (Abd Dig Minimi) Wrist ? 2.7 <3.0 9.2 >5 10.6 100.0 B Elbow Wrist 3.5 19.5 56 >45 B Elbow ? 6.2 6.0 7.2 65.2 A Elbow B Elbow 2.2 10.0 45 >45 A Elbow ? 8.4 5.8 7.1 63.0 Comparison Summary Table ?Stim Site NR Peak (ms) Norm Peak (ms) P-T Amp (?V) Site1 Site2 Delta-P (ms) Norm Delta (ms) Left Median/Radial Dig I Comparison (Digit 1 - 10cm) Median ? 3.8 <2.9 21.9 Median Radial 1.5 Radial ? 2.3 <2.8 17.5 EMG ?Side Muscle Nerve Root Ins Act Fibs Psw Amp Dur Poly Recrt Int Pat Comment Left 1stDorInt Ulnar C8-T1 Nml Nml Nml Nml Nml 0 Nml Complete Left FlexCarRad Median C6-7 Nml Nml Nml Nml Nml 0 Nml Complete Left Biceps Musculocut C5-6 Nml Nml Nml Nml Nml 0 Nml Complete Left Triceps Radial C6-7-8 Nml Nml Nml Nml Nml 0 Nml Complete Left Deltoid Axillary C5-6 Nml Nml Nml Nml Nml 0 Nml Complete FINDINGS: Left median motor nerve showed prolonged distal latency, normal amplitude and normal conduction velocity. Left median sensory nerve showed prolonged peak latency. Significant interlatency difference seen between left median radial sensory nerves. Evidence of possible Andres Sidra anastomosis was seen, which is a normal anatomic variant. All other nerves tested were within normal. Concentric needle EMG was performed in selected muscles of the . Study revealed did not reveal signs of electric abnormalities as shown in the table above. IMPRESSION: 1. This is an abnormal study. 2. There is electrodiagnostic evidence for left moderate-severe median neuropathy at the wrist, consistent with carpal tunnel syndrome. 3. There is no electrodiagnostic evidence for ulnar neuropathy, brachial plexopathy, or cervical radiculopathy. 4. Evidence of possible Andres Sidra anastomosis was seen, which is a normal anatomic variant. Thank you for your kind referral. Alba Harding MD, DINESH Board Certified, [place] Board [employer] and Rehabilitation (ABPMR) Board Certified, [place] Board of Electrodiagnostic Medicine (ABEM) [place] [id number] [facility]
== END 2024-01-25 13:49 | disposition home or self-care (01) ==
LOC: HO.NEURO 13:48
PROVIDERS: PCP Internal Medicine
DX: R20.0 Anesthesia of skin (principal); R20.2 Paresthesia of skin
CPT/HCPCS: 95886; 95909

== ENCOUNTER → 2024-01-25 13:51 | Outpatient (BNV) | payer BC, SELFPAY | PROVIDERS: PCP Internal Medicine; Visit Provider Physical Medicine & Rehabilitation | DX: G56.02 Carpal tunnel syndrome, left upper limb (principal) | CPT/HCPCS: 95886; 95909 ==

== ENCOUNTER 2024-02-05 15:34 | Outpatient (AMB) | payer BC, SELFPAY ==
--- NOTE | 2024-02-05 15:39 | A.OFFVIS_ITS ---
Intake Visit Reasons: OV- Left hand EMG review Intake Note: Edy is a 64 year old right hand dominant male who presents today for a review of his EMG of his left hand. Allergies atorvastatin [Lipitor] Adverse Reaction (Unknown, Verified 02/05/24 15:39) Muscle cramps ezetimibe [Zetia] Adverse Reaction (Unknown, Verified 02/05/24 15:39) Muscle cramps rosuvastatin [Crestor] Adverse Reaction (Unknown, Verified 02/05/24 15:39) Muscle cramps Statins Support Adverse Reaction (Unknown, Uncoded 02/05/24 15:39) Muscle cramps HPI HPI OV- Left hand EMG review: Details: Patient is a 64-year-old male who presents for left hand EMG review. Today, the patient reports that the numbness and tingling he is experiencing in the left upper extremity has worsened since last evaluation, as well as the discomfort he is feeling in his left hand, wrist, and forearm. EMG performed on 01/25/[address] Skinner demonstrated moderate to severe carpal tunnel syndrome on the left. The patient reports he would like to explore any potential treatment options available to him for this numbness, tingling, and pain in his left hand and wrist. No other acute complaints or concerns at this time. PFSH Medical History Sciatica Polysubstance abuse Vitamin D deficiency Hypercholesterolemia Hypertension Obesity (BMI 30-39.9) Erectile dysfunction GERD (gastroesophageal reflux disease) Coronary artery disease Alcohol abuse Surgical History Hx of cardiac cath Hx of colonoscopy Stented coronary artery History of surgery Family History Father Myocardial infarction Hypertension CVD (cardiovascular disease) Mother Hypertension Maternal Aunt Breast cancer Brother CVD (cardiovascular disease) Social History (Updated 01/07/24 @ 14:48 by AMBER Cordon) Housing: Condominium Alcohol intake: current Alcohol intake frequency: a few times a week Alcohol type: beer Comment: 2 days weekend 6 beers Patient Tobacco Use Status: Never used Tobacco e-Cigarette/Vaping Use: Never Used Second Hand Smoke Exposure: No service: No Current occupational status: employed 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 Neuro: Normal sensation of the tips of all digits of the left hand at this time Good APB muscle belly firing Good finger cross Vascular: Cap refill brisk Pain: No tenderness to palpation of the left hand or wrist noted ROM: Patient is able to make a closed fist and extend all digits of the left hand fully No visible or palpable locking or catching of the left index finger Skin: No lacerations or abrasions. General: No ecchymosis, erythema, or evidence of infection. Psych: Appears grossly normal Affect normal Attitude cooperative Results Reviewed Results Reviewed: IMPRESSION: 1. This is an abnormal study. 2. There is electrodiagnostic evidence for left moderate-severe median neuropathy at the wrist, consistent with carpal tunnel syndrome. 3. There is no electrodiagnostic evidence for ulnar neuropathy, brachial plexopathy, or cervical radiculopathy. 4. Evidence of possible Andres Sidra anastomosis was seen, which is a normal anatomic variant. Thank you for your kind referral. Alba Harding MD, DINESH 01/25/2024 Assessment & Plan Assessment & Plan (1) Trigger finger of left hand: Code(s): M65.30 - Trigger finger, unspecified finger Category: Medical (2) Pain in finger of left hand: Code(s): M79.645 - Pain in left finger(s) Category: Medical (3) Carpal tunnel syndrome, left: Code(s): G56.02 - Carpal tunnel syndrome, left upper limb Category: Medical Plan 1. Carpal tunnel syndrome, left Symptoms intermittent, but daily, worse at night I educated the patient about the condition. I discussed both operative and nonoperative treatment options. The patient would like to proceed with surgery. The risks and benefits of operative treatment were discussed with the patient and the patient wishes to proceed with surgery. These risks include, but are not limited to, risk of damage to blood vessels, nerves, tendons, infection, recurrence, incomplete relief of preoperative symptoms, persistent pain, possible need for further surgery, and the risks associated with regional blocks and/or anesthesia. Plan is to take the patient to the operating room at some point in the next few weeks for the following procedures: 1. Left carpal tunnel release under local anesthesia All of the preoperative paperwork including the consent was discussed today. All of the patient's questions were answered in the clinic today. The patient understands that they will be in contact with our surgical garment assembly supervisor to discuss scheduling their procedure. Patient reports that he does have a history of 2 prior heart attacks with stents in place Patient denies diabetes, blood thinners, asthma, lung issues, kidney issues, or current smoking. 2. Trigger finger, left index finger Patient's symptoms have resolved since last visit Patient is educated that he should call to schedule an appointment for re- evaluation and discussion of treatment options if symptoms recur Coding Level of Care Code Est Pt Level 4 (60115) Diagnoses Trigger finger of left hand M65.30 Pain in finger of left hand M79.645 Carpal tunnel syndrome, left G56.02
== END 2024-02-05 16:11 | disposition home or self-care (01) ==
PROVIDERS: PCP Internal Medicine
DX: M65.322 Trigger finger, left index finger (principal); G56.02 Carpal tunnel syndrome, left upper limb
CPT/HCPCS: 99214

== ENCOUNTER → 2024-02-05 15:34 | Outpatient (BNVA) | payer BC, SELFPAY | PROVIDERS: PCP Internal Medicine ==

== ENCOUNTER 2024-03-06 12:38 | Day surgery (SDC) | payer BC, SELFPAY ==
[2024-03-06 13:15] VITALS: BMI 36.0
--- NOTE | 2024-03-06 14:28 | P.OP_ITS ---
Operative Note Operative Note Date of Service: 03/06/24 Narrative: Preop diagnosis: 1. Left Carpal tunnel syndrome Postop diagnosis: same Procedure: 1. Left Carpal tunnel release Surgeon: Veronika Yu MD Marine Equipment Design Engineer: Meng MARES Anesthesia: local block using 1% lidocaine with epinephrine Findings: Thickened transverse carpal ligament. EBL: Less than 5 mL Specimens: None Complications: None Disposition: Brought to recovery room in stable condition Plan: Follow-up for 10-14 days for wound check and suture removal Indications: The patient is 64 years old, with left carpal tunnel syndrome that has been unresponsive to nonoperative management. The risks and benefits of operative treatment including but not limited to risk of damage to blood vessels, nerves, tendons, infection, persistent pain, persistent symptoms, or possible need for additional surgery were discussed with the patient and the patient wishes to proceed with surgery. Procedure: Once consent was obtained a local block was performed using a combination of 1% lidocaine with epinephrine. The patient was then brought back to the operating suite and placed on the operative table in supine position. The left upper extremity was prepped and draped in a standard surgical fashion. Once assured that we had a good block, a 2.0 cm longitudinal incision was made centered over the carpal tunnel. The incision was made through the skin to the subcutaneous tissues using a #15 blade. Dissection was made down to the level of the transverse carpal ligament with care being taken to protect the palmar cutaneous nerve. Once the transverse carpal ligament was clearly visualized, a longitudinal incision was made in the transverse carpal ligament 1st using a #15 blade, then using tenotomy scissors under direct visualization. Care was taken to look for and protect the motor branch of the median nerve when seen in this area. Once satisfied with our carpal tunnel release the wound was copiously irrigated with normal saline and hemostasis was obtained with a brief period of local pressure. The skin edges were reapproximated with some 5.0 nylon suture material and a sterile dressing was applied. The patient appears to have tolerated the procedure well and with no complications. All digits were well vascularized at the conclusion of the case.
--- NOTE | 2024-03-06 14:28 | MHC.SHP ---
Pre-Procedural Eval Section A - 24 Hr Update-Section A only Date of Service: 03/06/24 The patient is an INPATIENT: No Changes since office visit: No Cold of Flu in the past 2 weeks, No New Medical Problems, No Changes in Medication and No Patient answered all questions The patient has been examined within 24 hours of the surgical procedure. The History & Physical has been completed within 30 days and I have reviewed it.: Yes Section B - Complete if H&P > 30 days Chief Complaint: Carpal tunnel syndrome, left upper limb Allergies: Allergies Allergy/AdvReac Type Severity Reaction Status Date / Time atorvastatin [Lipitor] AdvReac Unknown Muscle Verified 03/06/24 13:14 cramps ezetimibe [Zetia] AdvReac Unknown Muscle Verified 03/06/24 13:14 cramps rosuvastatin [Crestor] AdvReac Unknown Muscle Verified 03/06/24 13:14 cramps Statins Support AdvReac Unknown Muscle Uncoded 02/05/24 15:39 cramps Plan Diagnosis/Plan: Unchanged I have reviewed the history and physical and performed a pertinent physical examination on my patient. No changes have occurred unless specified. Time Spent With Patient Time: Total time managing care of this patient today ____ minutes.
[2024-03-06 15:09] VITALS: BP 128/80; PULSE 63; RESP 16; O2SAT 98
== END 2024-03-06 15:19 | disposition home or self-care (01) ==
PROVIDERS: PCP Internal Medicine; Visit Provider Orthopaedic Surgery
PROC: (CPT 64721; principal; 2024-03-06 14:20)
DX: G56.02 Carpal tunnel syndrome, left upper limb (principal); R20.0 Anesthesia of skin; R20.2 Paresthesia of skin; I25.10 Atherosclerotic heart disease of native coronary artery without angina pectoris; Z95.5 Presence of coronary angioplasty implant and graft; I25.2 Old myocardial infarction; I10 Essential (primary) hypertension; E66.9 Obesity, unspecified; F19.10 Other psychoactive substance abuse, uncomplicated; F10.10 Alcohol abuse, uncomplicated; Z88.8 Allergy status to other drugs, medicaments and biological substances
CPT/HCPCS: 64721; J0171; J2003

== ENCOUNTER → 2024-03-06 12:38 | Outpatient (BNV) | payer BC, SELFPAY | PROVIDERS: PCP Internal Medicine; Visit Provider Orthopaedic Surgery | DX: G56.02 Carpal tunnel syndrome, left upper limb (principal) | CPT/HCPCS: 64721 ==

== ENCOUNTER → 2024-03-13 15:46 | Outpatient (BNVA) | payer BC, SELFPAY | PROVIDERS: PCP Internal Medicine ==

== ENCOUNTER 2024-03-19 11:06 | Outpatient (AMB) | payer BC, SELFPAY ==
--- NOTE | 2024-03-19 11:23 | A.OFFVIS_ITS ---
Intake Visit Reasons: PO LT CTR 03/06/24 AR Intake Note: Edy is a 64 year old right hand dominant male who presents today post operatively s/p left carpal tunnel release w/ Dr Yu DOS: 03/06/2024. Pt states he does have some numbness but denies tingling. Allergies atorvastatin [Lipitor] Adverse Reaction (Unknown, Verified 03/19/24 11:23) Muscle cramps ezetimibe [Zetia] Adverse Reaction (Unknown, Verified 03/19/24 11:23) Muscle cramps rosuvastatin [Crestor] Adverse Reaction (Unknown, Verified 03/19/24 11:23) Muscle cramps Statins Support Adverse Reaction (Unknown, Uncoded 03/19/24 11:23) Muscle cramps HPI HPI PO LT CTR 03/06/24 AR: Details: Patient is a 64-year-old male who presents for postoperative evaluation of left carpal tunnel release, DOS 03/06/[address] Yu. Patient states that he is doing well, and has no ongoing numbness or tingling in his left hand. Patient states that he has no other acute complaints or concerns at this time. The patient does state that he has had some intermittent numbness and tingling in the right hand, but does not feel he needs an EMG or any potential surgical intervention at this time. PFSH Medical History Sciatica Polysubstance abuse Vitamin D deficiency Hypercholesterolemia Hypertension Obesity (BMI 30-39.9) Erectile dysfunction GERD (gastroesophageal reflux disease) Coronary artery disease Alcohol abuse Surgical History Hx of cardiac cath Hx of colonoscopy Stented coronary artery History of surgery Family History Father Myocardial infarction Hypertension CVD (cardiovascular disease) Mother Hypertension Maternal Aunt Breast cancer Brother CVD (cardiovascular disease) Social History (Updated 01/07/24 @ 14:48 by AMBER Cordon) Housing: Condominium Alcohol intake: current Alcohol intake frequency: a few times a week Alcohol type: beer Comment: 2 days weekend 6 beers Patient Tobacco Use Status: Never used Tobacco e-Cigarette/Vaping Use: Never Used Second Hand Smoke Exposure: No service: No Current occupational status: employed 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 Neuro: Normal sensation of the tips of all digits of the left hand at this time Vascular: Cap refill brisk Pain: Patient does report some tenderness to palpation on the radial and ulnar sides of the incision site No tenderness to palpation directly over the incision site Range of motion painless ROM: Patient is able to make a closed fist and extend all digits of the left hand fully and without difficulty Skin: Well approximated and well healing incision site noted on the volar aspect of the patient's left wrist Sutures removed General: No ecchymosis, erythema, or evidence of infection. Psych: Appears grossly normal Affect normal Attitude cooperative Assessment & Plan Assessment & Plan (1) Carpal tunnel syndrome, left: Code(s): G56.02 - Carpal tunnel syndrome, left upper limb Category: Medical (2) Numbness and tingling of right hand: Code(s): R20.0 - Anesthesia of skin; R20.2 - Paresthesia of skin Category: Medical Plan 1. Carpal tunnel syndrome, left, status post carpal tunnel release DOS 03/06/2024 Patient appears to be recovering well postoperatively Patient is educated about the typical recovery course At this time, patient is referred to occupational therapy for range of motion and strengthening of the left hand in the setting of pillar pain after a carpal tunnel release Patient was amenable to this plan Patient was advised that he does not require an acute follow-up with us, as he has demonstrated good recovery postoperatively 2. Numbness and tingling of right hand Symptoms intermittent, not daily, worse at night Patient is educated that when he feels he is ready for an EMG and nerve conduction study, as well as potential surgical discussion if indicated, should call us for another appointment and reassessment Patient was amenable to this plan Orders: Orders OT Evaluation and Treatment Today G56.02 - Carpal tunnel syndrome, left upper limb Coding Level of Care Code Global (18259) Diagnoses Carpal tunnel syndrome, left G56.02 Numbness and tingling of right hand R20.0; R20.2
== END 2024-03-19 11:46 | disposition home or self-care (01) ==
PROVIDERS: PCP Internal Medicine
DX: G56.02 Carpal tunnel syndrome, left upper limb (principal); R20.0 Anesthesia of skin; R20.2 Paresthesia of skin
CPT/HCPCS: 99024

== ENCOUNTER → 2024-03-19 11:06 | Outpatient (BNVA) | payer BC, SELFPAY | PROVIDERS: PCP Internal Medicine ==

== ENCOUNTER 2024-04-18 08:32 | Outpatient (RCR) | payer BC, SELFPAY ==
--- NOTE | 2024-04-18 10:01 | MHC.OT.EP ---
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 He denies paresthesia in the hand , and only reports mild discomfort. His scar appears light pink, flat , and he denies sensitivity w/ touch to the scar. His ROM is WNL and he has the ability to make a pain free composite fist. He has been referred to skilled OT Therapy for education on the healing process, scar massage, and increased strength and functional use of his L hand Frequency and Duration: The patient will be seen 2xs a week for 2 weeks Short Term Goals: SEE BELOW [facility] Goals: Pt will be compliant w/ HEP Pt will be complaint w/ scar care/ massage Pt will report ability to Return to the gym/ full work out w/ out difficulty Treatment Plan: Therapeutic Exercise Therapeutic Activity Home Exercise Program Neuro Re-ed Patient Education Desensitization/Sensory Re-ed Ultrasound Fluidotherapy Joint Mobilization Soft Tissue Mobilization Kinesiotaping Electronically Signed By: Tonie Barlow OTR/L Please Sign and return to therapist. Thank you once again for your referral.
== END 2024-08-15 14:28 | disposition home or self-care (01) ==
LOC: HO.OT 08:32
PROVIDERS: PCP Internal Medicine
DX: G56.02 Carpal tunnel syndrome, left upper limb (principal)
CPT/HCPCS: 97035; 97110; 97140; 97165

== ENCOUNTER 2024-05-12 15:27 | Outpatient (AMB) | payer BC, SELFPAY ==
[2024-05-12 15:30] VITALS: BP 130/98; PULSE 67; O2SAT 99; BMI 36.2
--- NOTE | 2024-05-12 15:30 | MHC.PC.OV ---
Vital Signs 05/12/24 15:30 Height 5 ft 9 in Weight 245 lb 4 oz BMI 36.2 BP 130/98 H Blood Pressure Location Lt brachial Position Sitting Pulse 67 Pulse Source Pulse Oximeter Pulse Oximetry (%) 99 Oxygen Delivery Method Room Air Intake Visit Reasons: Hypertension Allergies atorvastatin [Lipitor] Adverse Reaction (Unknown, Verified 05/12/24 15:33) Muscle cramps ezetimibe [Zetia] Adverse Reaction (Unknown, Verified 05/12/24 15:33) Muscle cramps rosuvastatin [Crestor] Adverse Reaction (Unknown, Verified 05/12/24 15:33) Muscle cramps Statins Support Adverse Reaction (Unknown, Uncoded 05/12/24 15:33) Muscle cramps Tobacco use date assessed: 05/12/24 Dental Screening Dental Screen Date: 05/12/24 Did you have a dental visit in the last 12 months?: Yes Did you have a dental problem in the last 6 months where you did not have access to dental care?: No Was dental information given to patient?: Patient has dentist HPI Hypertension HPI Details The patient is a 64-year-old male presenting with follow-up concerns related to recent surgery on his left hand and ongoing management of other chronic health conditions. Post-surgery, the patient reports experiencing numbness, predominantly associated with carpal tunnel syndrome, though currently, numbness manifests minimally. Additionally, he notes a new onset of the right-hand locking phenomenon, identified as trigger finger, marked by tendon inflammation. This locking exacerbates with increased physical activity, such as returning to gym exercises. Regarding cardiovascular history, the patient has a history of coronary artery disease with myocardial infarction and stent placements approximately two decades older, recently evaluated via stress test and echocardiogram. The echocardiogram indicates preserved ejection fraction (60-65%), with no ischemia or significant stenosis in coronary perfusion assessments despite previous myocardial damage. The patient has hyperlipidemia, managed effectively per recent blood work. Comorbid obesity raises concerns prompting discussions of potential pharmacotherapy (Wegovy) to aid weight loss, with the patient considering a trial despite potential gastrointestinal side effects and coverage challenges. PFSH Medical History Sciatica Polysubstance abuse Vitamin D deficiency Hypercholesterolemia Hypertension Obesity (BMI 30-39.9) Erectile dysfunction GERD (gastroesophageal reflux disease) Coronary artery disease Alcohol abuse Surgical History Hx of cardiac cath Hx of colonoscopy Stented coronary artery History of surgery Family History Father Myocardial infarction Hypertension CVD (cardiovascular disease) Mother Hypertension Maternal Aunt Breast cancer Brother CVD (cardiovascular disease) Social History [facility] Alcohol intake: current Alcohol intake frequency: a few times a week Alcohol type: beer Comment: 2 days weekend 6 beers Patient Tobacco Use Status: Never used Tobacco e-Cigarette/Vaping Use: Never Used Second Hand Smoke Exposure: No service: No Current occupational status: employed 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 1. Little interest or pleasure in doing things: not at all 2. Feeling down, depressed, or hopeless: not at all 3. Trouble falling or staying asleep, or sleeping too much: not at all 4. Feeling tired or having little energy: not at all 5. Poor appetite or overeating: not at all 6. Feeling bad about yourself - or that you are a failure or have let yourself or your family down: not at all 7. Trouble concentrating on things, such as reading the newspaper or watching television: not at all 8. Moving or speaking so slowly that other people could have noticed. Or the opposite - being so fidgety or restless that you have been moving around a lot more than usual: not at all 9. Thoughts that you would be better off or of hurting yourself in some way: not at all Total score: 0 Depression Screening Interpretation: Negative Depression Screening Done: Yes 80377 - PHQ-9 Billing: Yes Source: Developed by Drs. Juan Carlos Watters, Moon Franks, Lan Dickey and colleagues, with an educational nancy from [employer]. Thrive Questionnaire Date Thrive assessed: 05/12/24 I am a: Patient What is your living situation today?: I have a steady place to live Within the past 12 months, did the food you bought not last and you didn't have the money to get more?: Never true Within the past 12 months, did you worry whether your food would run out before you got money to buy more?: Never true Do you have trouble paying for medicines?: No Do you have trouble getting transportation to medical appointments?: No Do you have trouble paying your heating and electricity bill?: No Do you have trouble taking care of your child, family member or friend?: No Do you have trouble with day-to-day activities such as bathing, preparing meals, shopping, managing finances, etc.?: No Are you currently unemployed and looking for a job?: No Are you interested in more education?: No Please select the resources that you would like help with: None THRIVE Score: 0 AUDIT C Alcohol Use Questionnaire (AUDIT-C) 1. How often do you have a drink containing alcohol?: 2-3 times a week 2. How many drinks containing alcohol do you have on a typical day when you are drinking?: 3 or 4 3. How often do you have six or more drinks on one occasion?: Never Total Score: 4 JOSÉ LUIS-7 AMB Questionnaire JOSÉ LUIS-7 Date JOSÉL UIS - 7 assessed: 05/12/24 Feeling nervous, anxious, or on edge: 0 = Not at all Not being able to stop or control worryin = Not at all Worrying too much about different things: 0 = Not at all Trouble relaxin = Not at all Being so restless that it is hard to sit still: 0 = Not at all Becoming easily annoyed or irritable: 0 = Not at all Feeling afraid as if something awful might happen: 0 = Not at all Total JOSÉ LUIS-7 score (0-4 normal; 5-9 mild; 10-14 moderate; 15-21 severe): 0 Source: Developed by Drs. Juan Carlos Watters, Moon Franks, Lan Dickey and colleagues, with an educational nancy from [employer]. JOSÉ LUIS-7 Assessment Billing JOSÉ LUIS-7 Assessment Tool: JOSÉ LUIS-7 Assessment 06387 Physical exam (Primary Care) Vital Signs: Last Vital Signs Pulse 67 05/12/24 15:30 BP 130/98 H 05/12/24 15:30 Pulse Ox 99 05/12/24 15:30 Oxygen Delivery Method Room Air 05/12/24 15:30 BMI result Body Mass Index 36.2 Tobacco/Smoking Status: Tobacco use Status Tobacco use date assessed 05/12/24 05/12/24 15:34 Patient Tobacco Use Status Never used Tobacco 05/12/24 15:34 e-Cigarette/Vaping Use Never Used 05/12/24 15:34 PHQ-9: PHQ-9 Score PHQ-9: Total score 0 05/12/24 15:49 Depression Screening Interpretation: Negative Thrive Assessment: Date of Thrive Assessment Date Thrive assessed 05/12/24 05/12/24 15:34 Const General: alert; No acute distress Eyes Conjunctivae: conjunctivae normal Resp Auscultation: clear to auscultation bilaterally Cardio Rate: regular rate Rhythm: regular rhythm GI Inspection: Yes normal to inspection Extrem General: Yes normal to inspection and No edema Coding Level of Care Code Est Pt Level 4 (91538) Complex EM visit Add On G2211 Diagnoses Coronary artery disease involving [place] coronary artery of [place] heart without angina pectoris I25.10 Associated angina: without angina Coronary Disease-Associated Artery/Lesion type: [place] artery [place] vs. transplanted heart: [place] heart Essential hypertension I10 Hypertension type: essential hypertension Hypercholesterolemia E78.00 Obesity (BMI 30-39.9) E66.9 Gastroesophageal reflux disease without esophagitis K21.9 Esophagitis presence: without esophagitis Carpal tunnel syndrome, left G56.02 Numbness and tingling of right hand R20.0; R20.2 Additional Codes JOSÉ LUIS-7 Assessment Billing - JOSÉ LUIS-7 Assessment Tool: JOSÉ LUIS-7 Assessment 04411 ([id number]) PHQ-9 - 22238 - PHQ-9 Billing: Yes ([id number]) Assessment & Plan Assessment & Plan (1) Coronary artery disease: Comment: Premature atherosclerosis. Code(s): I25.10 - Atherosclerotic heart disease of [place] coronary artery without angina pectoris Category: Medical Qualifiers: Associated angina: without angina Coronary Disease-Associated Artery/Lesion type: [place] artery [place] vs. transplanted heart: [place] heart Qualified Code(s): I25.10 - Atherosclerotic heart disease of [place] coronary artery without angina pectoris Plan: Control the cholesterol, weight, blood pressure, continue with aspirin 81 mg once a day (2) Hypertension: Code(s): I10 - Essential (primary) hypertension Category: Medical Qualifiers: Hypertension type: essential hypertension Qualified Code(s): I10 - Essential (primary) hypertension Plan: Continue with blood pressure medication. Decrease salt intake and exercise on metoprolol 50 mg once a day (3) Hypercholesterolemia: Code(s): E78.00 - Pure hypercholesterolemia, unspecified Category: Medical Plan: Avoid fried foods, chicken skin, eggs, butter margarine, pastries and meat. Be it pork or beef they have a lot of cholesterol LDL goal of less than 70 and triglyceride of less than 150 on Repatha every 2 weeks (4) Obesity (BMI 30-39.9): Code(s): E66.9 - Obesity, unspecified Category: Medical Plan: Diet and exercise. Patient wants to try Wegovy (5) GERD (gastroesophageal reflux disease): Code(s): K21.9 - Gastro-esophageal reflux disease without esophagitis Category: Medical Qualifiers: Esophagitis presence: without esophagitis Qualified Code(s): K21.9 - Gastro-esophageal reflux disease without esophagitis Plan: Avoid the foods that causes that usually spicy foods, tomato products, juices, coffee, soda and foods that your sensitive to. After eating do not lie down, allow 3-4 hours before in lie down. And keep the head of bed above 30 degrees to avoid the acid from going up. (6) Carpal tunnel syndrome, left: Comment: s/p release left 02/2024 Code(s): G56.02 - Carpal tunnel syndrome, left upper limb Category: Medical Plan: Continue to follow-up with orthopedics (7) Numbness and tingling of right hand: Code(s): R20.0 - Anesthesia of skin; R20.2 - Paresthesia of skin Category: Medical Plan: Patient does have carpal tunnel but would like to hold off from surgery for the moment. Orders: Orders Complete Blood Count Auto Diff 4 Months I25.10 - Atherosclerotic heart disease of [place] coronary artery without angina pectoris Comprehensive Met. Panel 4 Months I25.10 - Atherosclerotic heart disease of [place] coronary artery without angina pectoris Prostate Specific Antigen Scr 4 Months I25.10 - Atherosclerotic heart disease of [place] coronary artery without angina pectoris Free T4 (Free Thyroxine) 4 Months I25.10 - Atherosclerotic heart disease of [place] coronary artery without angina pectoris Thyroid Stimulating Hormone 4 Months I25.10 - Atherosclerotic heart disease of [place] coronary artery without angina pectoris Lipid Panel 4 Months E78.00 - Pure hypercholesterolemia, unspecified, I25.10 - Atherosclerotic heart disease of [place] coronary artery without angina pectoris Vitamin B12 and Folate 4 Months I25.10 - Atherosclerotic heart disease of [place] coronary artery without angina pectoris Magnesium 4 Months I25.10 - Atherosclerotic heart disease of [place] coronary artery without angina pectoris Medications: Refilled semaglutide (weight loss) (Sagar) administer weeks 1 through 4 of therapy 0.25 mg (0.5 mL) subcut QWEEK 2 mL 0RF E66.9 - Obesity, unspecified
--- OUTSIDE RECORDS SUMMARY | 2024-05-12 19:26 | XMS_ITS | Patient Health Record ---
Author Organization [facility] Address [address] [place] [address] Care Team Providers Care Wet Sander Name Role Phone Puma Dailey MD Primary Care Provider Jose Webb Jr Unavailable ALLERGIES No Known Allergies REASON FOR REFERRAL No Information MEDICATIONS Medication SIG (Take, Route, Frequency, Duration) Notes Start Date End Date Status CoQ-10 Active Repatha SureClick 140 MG/ML Subcutaneous for 28 Active Aspir-81 Active Metoprolol Succinate ER 50 MG Oral for 90 Active Gabapentin 100 MG TAKE 1 CAPSULE BY [facility] AT BEDTIME Oral for 30 Active MiraLax (colon prep) 17 GM/SCOOP mixed with Gatorade or Crystal Light Orally begin at 5:00 p.m. the day before the procedure for 1 day 07/21/2021 Active IMMUNIZATIONS Vaccine Route Administration Date Status Comme nts Influenza Unknown 03/14/2018 Administered Influenza Unknown 07/21/2021 Refused SOCIAL HISTORY Sex Assigned At : Social History Observation Description Sex Assigned At Unknown Alcohol Screen Question Answer Notes Did you have a drink contain ing alcohol in the past year? Yes How often did you have a dri nk containing alcohol in the past year? 2 to 3 times a week (3 points) How many drinks did you have on a typical day when you were drinking in the past year? 1 or 2 drinks (0 point) How often did you have 6 or more drinks on one occasion in the past year? Never (0 point) Points 3 Interpretation Negative PROBLEMS Problem Type ICD Code Onset Dates Problem Status W/U Status Risk SNOMED Code Notes Problem Colon cancer screening (Z12.11) Active confirmed 547628546 Problem Encounter for other preprocedural examination (Z01.818) Active confirmed 23915582 Problem Long-term use of aspirin therapy (Z79.82) Active confirmed [id number] PLAN OF TREATMENT Future Test Test Name Order Date COLONOSCOPY 10/10/2012 COLONOSCOPY 03/14/2018 COLONOSCOPY 07/21/2021 Insurance Providers Payer Name Payer Address Payer Phone Subscriber Number Group Number Insured Name Patient Relationship to Insured Coverage Start Date Coverage End Date [facility] [address] [place], [place] [id number] TODD BURGESS Self - patient is the insured MEDICAL (GENERAL) HISTORY Medical History History ICD Code coronary artery disease, history of CA x 2 elevated cholesterol hypertension pinched nerve - physicial therapy Surgical History Surgery Date(Month/Year) Disc surgery on back coronary artery stenting x2 basil cell forhead
== END 2024-05-12 16:40 | disposition home or self-care (01) ==
PROVIDERS: PCP Internal Medicine; Visit Provider Internal Medicine
DX: I25.10 Atherosclerotic heart disease of native coronary artery without angina pectoris (principal); I10 Essential (primary) hypertension; E66.9 Obesity, unspecified; Z68.36 Body mass index [BMI] 36.0-36.9, adult; E78.00 Pure hypercholesterolemia, unspecified; K21.9 Gastro-esophageal reflux disease without esophagitis; G56.02 Carpal tunnel syndrome, left upper limb; R20.0 Anesthesia of skin; R20.2 Paresthesia of skin

== ENCOUNTER → 2024-05-12 15:27 | Outpatient (BNVA) | payer BC, SELFPAY | PROVIDERS: PCP Internal Medicine; Visit Provider Internal Medicine | DX: I25.10 Atherosclerotic heart disease of native coronary artery without angina pectoris (principal); I10 Essential (primary) hypertension; E78.00 Pure hypercholesterolemia, unspecified; E66.9 Obesity, unspecified; Z68.36 Body mass index [BMI] 36.0-36.9, adult; K21.9 Gastro-esophageal reflux disease without esophagitis; G56.02 Carpal tunnel syndrome, left upper limb; R20.0 Anesthesia of skin; R20.2 Paresthesia of skin; Z79.82 Long term (current) use of aspirin; Z79.899 Other long term (current) drug therapy | CPT/HCPCS: 96127 ==

== ENCOUNTER 2024-07-31 15:07 | Outpatient (AMB) | payer BC, SELFPAY ==
[2024-07-31 15:09] VITALS: BP 136/84; PULSE 79; O2SAT 96; BMI 35.9
--- NOTE | 2024-07-31 15:09 | MHC.PC.OV ---
Vital Signs 07/31/24 15:09 Height 5 ft 9 in Weight 243 lb BMI 35.9 BP 136/84 Blood Pressure Location Lt brachial Position Sitting Pulse 79 Pulse Source Pulse Oximeter Pulse Oximetry (%) 96 Oxygen Delivery Method Room Air Intake Visit Reasons: annual exam Catering Assistant Required: No Accompanied by: Self / Same As Patient Allergies atorvastatin [Lipitor] Adverse Reaction (Unknown, Verified 07/31/24 15:10) Muscle cramps ezetimibe [Zetia] Adverse Reaction (Unknown, Verified 07/31/24 15:10) Muscle cramps rosuvastatin [Crestor] Adverse Reaction (Unknown, Verified 07/31/24 15:10) Muscle cramps Statins Support Adverse Reaction (Unknown, Uncoded 07/31/24 15:10) Muscle cramps Medication List - Last Reconciled 07/31/24 by Puma Dailey MD aspirin (Adult Aspirin Regimen) 81 mg PO DAILY coenzyme Q10 (CoQ-10) 30 mg PO DAILY metoprolol succinate ER 50 mg PO DAILY Repatha SureClick (evolocumab) 140 mg subcut Q2W NS sildenafil (Viagra) 100 mg PO DAILY PRN tirzepatide (weight loss) (Zepbound) 2.5 mg (0.5 mL) subcut QWEEK Tobacco use date assessed: 07/31/24 Dental Screening Dental Screen Date: 07/31/24 Did you have a dental visit in the last 12 months?: No Did you have a dental problem in the last 6 months where you did not have access to dental care?: No Was dental information given to patient?: No PFSH Medical History Sciatica Polysubstance abuse Vitamin D deficiency Hypercholesterolemia Hypertension Obesity (BMI 30-39.9) Erectile dysfunction GERD (gastroesophageal reflux disease) Coronary artery disease Alcohol abuse Surgical History Hx of cardiac cath Hx of colonoscopy Stented coronary artery History of surgery Family History (Updated 07/31/24 @ 15:29 by Puma Dailey MD) Father Myocardial infarction Hypertension CVD (cardiovascular disease) Mother Hypertension Maternal Aunt Breast cancer Brother CVD (cardiovascular disease) Brother CVD (cardiovascular disease) Social History (Updated 07/31/24 @ 15:30 by Puma Dailey MD) [facility] Alcohol intake: current Alcohol intake frequency: a few times a week Alcohol type: beer Comment: 2 days weekend 4-5 beers Patient Tobacco Use Status: Never used Tobacco e-Cigarette/Vaping Use: Never Used Second Hand Smoke Exposure: No service: No Current occupational status: employed 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 1. Little interest or pleasure in doing things: not at all 2. Feeling down, depressed, or hopeless: not at all 3. Trouble falling or staying asleep, or sleeping too much: not at all 4. Feeling tired or having little energy: not at all 5. Poor appetite or overeating: not at all 6. Feeling bad about yourself - or that you are a failure or have let yourself or your family down: not at all 7. Trouble concentrating on things, such as reading the newspaper or watching television: not at all 8. Moving or speaking so slowly that other people could have noticed. Or the opposite - being so fidgety or restless that you have been moving around a lot more than usual: not at all 9. Thoughts that you would be better off or of hurting yourself in some way: not at all Total score: 0 Source: Developed by Drs. Juan Carlos Watters, Moon Franks, Lan Dickey and colleagues, with an educational nancy from [employer]. Thrive Questionnaire Date Thrive assessed: 07/31/24 I am a: Patient What is your living situation today?: I have a steady place to live Within the past 12 months, did the food you bought not last and you didn't have the money to get more?: Often true Within the past 12 months, did you worry whether your food would run out before you got money to buy more?: I choose not to answer this question Do you have trouble paying for medicines?: I choose not to answer this question Do you have trouble getting transportation to medical appointments?: I choose not to answer this question Do you have trouble paying your heating and electricity bill?: I choose not to answer this question Do you have trouble taking care of your child, family member or friend?: I choose not to answer this question Do you have trouble with day-to-day activities such as bathing, preparing meals, shopping, managing finances, etc.?: I choose not to answer this question Are you currently unemployed and looking for a job?: I choose not to answer this question Are you interested in more education?: I choose not to answer this question Please select the resources that you would like help with: None Currently or been in a relationship where the following occur: I choose not to answer THRIVE Score: 1 AUDIT C Alcohol Use Questionnaire (AUDIT-C) 1. How often do you have a drink containing alcohol?: Never 3. How often do you have six or more drinks on one occasion?: Never Total Score: 0 JOSÉ LUIS-7 AMB Questionnaire JOSÉ LUIS-7 Date JOSÉ LUIS - 7 assessed: 07/31/24 Feeling nervous, anxious, or on edge: 0 = Not at all Not being able to stop or control worryin = Not at all Worrying too much about different things: 0 = Not at all Trouble relaxin = Not at all Being so restless that it is hard to sit still: 0 = Not at all Becoming easily annoyed or irritable: 0 = Not at all Feeling afraid as if something awful might happen: 0 = Not at all Total JOSÉ LUIS-7 score (0-4 normal; 5-9 mild; 10-14 moderate; 15-21 severe): 0 Source: Developed by Drs. Juan Carlos Watters, Moon Franks, Lan Dickey and colleagues, with an educational nancy from [employer]. Review of Systems Const Denies poor appetite and Denies weakness Eyes Denies no additional complaints ENT Reports Normal hearing present, Denies dizziness, Denies nasal congestion, Denies tinnitus and Denies sore throat Card Denies chest pain, Denies syncope, Denies rapid heart rate and Denies dyspnea Resp Denies cough and Denies dyspnea GI Denies change in stool character, Reports constipation, Denies diarrhea, Denies nausea and Denies vomiting Denies dysuria and Denies urinary frequency Neuro Reports Normal hearing present, Denies confusion, Denies dizziness, Denies syncope and Denies weakness Psych Denies confusion Physical exam (Primary Care) Vital Signs: Last Vital Signs Pulse 79 07/31/24 15:09 BP 136/84 07/31/24 15:09 Pulse Ox 96 07/31/24 15:09 Oxygen Delivery Method Room Air 07/31/24 15:09 BMI result Body Mass Index 35.9 Tobacco/Smoking Status: Tobacco use Status Tobacco use date assessed 07/31/24 07/31/24 15:20 Patient Tobacco Use Status Never used Tobacco 07/31/24 15:20 e-Cigarette/Vaping Use Never Used 07/31/24 15:20 PHQ-9: PHQ-9 Score PHQ-9: Total score 0 07/31/24 15:20 Thrive Assessment: Date of Thrive Assessment Date Thrive assessed 07/31/24 07/31/24 15:20 Currently or been in a relationship where the following occur: I choose not to answer Const General: No confusion Orientation/consciousness: No confusion HENMT Head: Yes normocephalic Ears: external ears normal and TM's normal bilaterally Face and sinus: Yes normal facial exam Mouth: moist mucous membranes Throat: Yes tonsils normal Eyes Conjunctivae: conjunctivae normal Pupils: Equal, round and reactive pupils present and Pupil accommodation reflex normal Direct Ophthalmoscopy: normal light reflex Neck Neck: No lymphadenopathy Thyroid: Thyroid normal Chest Chest palpation & inspection: normal inspection of the chest Resp Effort & Inspection: normal respiratory effort and no audible wheezes Auscultation: clear to auscultation bilaterally, no crackles, no wheezes and lung sounds not diminished Cardio Rate: regular rate Rhythm: regular rhythm Peripheral pulses: radial pulses present and dorsalis pedis present GI Other: guaiac negative, normal prostrate Palpation (GI): no masses Auscultation: normal bowel sounds and normoactive bowel sounds Male General Exam: Yes normal external exam Skin General skin exam: no rashes or lesions noted Rashes: no rashes Neuro General: No confusion Cranial nerves: Yes Equal, round and reactive pupils present and Yes Normal hearing present Cognition (Neuro): normal cognition Gait exam (Neuro): Normal gait present Motor exam (neuro): 5/5 motor strength present throughout Deep tendon reflexes (DTR's): Right brachioradialis reflex intensity grade: 2+, Left brachioradialis reflex intensity grade: 2+, Right patellar reflex intensity grade: 2+ and Left patellar reflex intensity grade: 2+ Extrem General: No edema Coding Level of Care Code Est Pt Prev Care 40-64y(02410) Diagnoses Annual physical exam Z00.00 Coronary artery disease involving citizen [place] coronary artery of [place] heart without angina pectoris I25.10 Coronary Disease-Associated Artery/Lesion type: [place] artery [place] vs. transplanted heart: [place] heart Associated angina: without angina Essential hypertension I10 Hypertension type: essential hypertension Hypercholesterolemia E78.00 Gastroesophageal reflux disease without esophagitis K21.9 Esophagitis presence: without esophagitis Obesity (BMI 30-39.9) E66.9 Hypersomnia G47.10 Assessment & Plan Assessment & Plan (1) Annual physical exam: Code(s): Z00.00 - Encounter for general adult medical examination without abnormal findings Category: Medical Plan: Patient is advised to eat healthy, keep well hydrated, keep active and have adequate sleep. (2) Coronary artery disease: Comment: Premature atherosclerosis. Code(s): I25.10 - Atherosclerotic heart disease of [place] coronary artery without angina pectoris Category: Medical Qualifiers: Coronary Disease-Associated Artery/Lesion type: [place] artery [place] vs. transplanted heart: [place] heart Associated angina: without angina Qualified Code(s): I25.10 - Atherosclerotic heart disease of [place] coronary artery without angina pectoris Plan: Control the cholesterol, weight, blood pressure, patient on baby aspirin once a day (3) Hypertension: Code(s): I10 - Essential (primary) hypertension Category: Medical Qualifiers: Hypertension type: essential hypertension Qualified Code(s): I10 - Essential (primary) hypertension Plan: Continue with blood pressure medication. Decrease salt intake and exercise on metoprolol 50 mg once a day (4) Hypercholesterolemia: Code(s): E78.00 - Pure hypercholesterolemia, unspecified Category: Medical Plan: Avoid fried foods, chicken skin, eggs, butter margarine, pastries and meat. Be it pork or beef they have a lot of cholesterol patient on Repatha LDL goal of less than 70. And triglyceride of less than 150 (5) GERD (gastroesophageal reflux disease): Code(s): K21.9 - Gastro-esophageal reflux disease without esophagitis Category: Medical Qualifiers: Esophagitis presence: without esophagitis Qualified Code(s): K21.9 - Gastro-esophageal reflux disease without esophagitis Plan: Avoid the foods that causes that usually spicy foods, tomato products, juices, coffee, soda and foods that your sensitive to. After eating do not lie down, allow 3-4 hours before in lie down. And keep the head of bed above 30 degrees to avoid the acid from going up. (6) Obesity (BMI 30-39.9): Code(s): E66.9 - Obesity, unspecified Category: Medical Plan: Diet and exercise patient on wegovy (7) Hypersomnia: Comment: 06/09/2024 Code(s): G47.10 - Hypersomnia, unspecified Category: Medical Plan: declined work up for now for sleep study Plan History of Present Illness The patient is a 64-year-old male presenting for a routine physical examination. His medical history includes obesity, coronary artery disease, gastroesophageal reflux disease (GERD), hypertension, and hypercholesterolemia. He was last seen in April 2024. In 2021, he underwent a colonoscopy, with his last blood work performed in August 2023, which demonstrated normal levels in several parameters including blood count and liver function. The patient's LDL cholesterol was notably low at 23. A previous thyroid evaluation in 2019 was normal, and a stress test from last year showed no ischemia. The ejection fraction was reported as normal. The patient has carpal tunnel syndrome, with a pending decision on surgical correction. Family history discloses significant cardiac issues, with his father and brothers affected, one of whom recently underwent a surgical procedure. An aunt had breast cancer, with other non-immediate family members also having had cancer. Health Maintenance - Routine physical examination - Colonoscopy last performed August 2021 - Blood work with normal counts and liver function; LDL at 23 (August 2023) - Stress test indicating no ischemia and normal ejection fraction (last year) - Thyroid function normal (2019) - Discussion on weight management and potential lifestyle improvements - Vaccination against shingles discussed and planned - COVID-19 infection four weeks prior; patient has recovered Social History - Alcohol intake: 4-5 drinks twice a week - No tobacco or recreational drug use - Exercises at the gym five times a week - Problem holding urine exacerbated by running water sounds - Previous diagnosis of familial cardiac issues (father, two brothers, one with recent surgery) - Regularly seeks medical prescriptions at [facility] Review of Systems - Cardiac: Denies chest pain, palpitations, shortness of breath - Gastrointestinal: Denies nausea, vomiting, or dysphagia - Genitourinary: Denies urinary frequency at night, notes urgency in response to sounds of water - Neurological: Denies dizziness, hearing issues - Respiratory: Denies frequent respiratory issues, shortness of breath upon waking - Sleep: Reports waking early, no formal sleep study conducted Physical Exam General: Cooperative, healthy appearing, comfortable, no acute distress and well developed Orientation: Patient oriented x3 Limitations: No limitations Head: Normal to inspection Ears: Hearing grossly normal bilaterally Nose: Normal external nose present Face and sinus: Normal facial exam Eyes: Appearance normal, both eyes and all related structures Neck: Normal visual inspection and Yes full ROM Respiratory: Normal respiratory effort and able to speak in complete sentences. Clear to auscultation bilaterally Cardiovascular: Regular rate and rhythm. Normal S1 and S2 GI: Normal to inspection. Soft to palpation and nontender Skin: No rashes or lesions noted Neuro: Patient oriented x3 Extremities: Normal to inspection Results - Labs: Normal blood count, electrolytes, renal function, liver function, vitamin B12, and folic acid - Tests: Stress test indicated no ischemia, normal ejection fraction Plan The management plan involves addressing the patient's chronic conditions, continuing aspirin and CoQ10 for cardiovascular health, and metoprolol for hypertension. Repatha will be used to manage LDL cholesterol, a focus given past statin intolerance. Considering weight management, we are exploring Zepbound pending insurance approval. As the patient is active, regular gym visits are encouraged. The option for carpal tunnel surgery remains available, given the patient's return to gym activities. There is a discussion on a sleep study for potential apnea issues, presently deferred. The patient should consider the shingles vaccine, aware of potential minor post-vaccine discomfort. Plans for timely follow-up and routine lab evaluations will continue, overseeing cholesterol and blood pressure levels. Patient was informed and verbally consented to the use of an ambient scribe for clinic note documentation during this visit. Discussion Notes I discussed the various management options considering the patient's longstanding health issues. Regarding his cardiovascular health, we focused on maintaining aspirin and CoQ10 usage and the continuation of metoprolol for blood pressure control. Repatha remains our primary choice for managing hypercholesterolemia due to previous intolerances to other medications. Weight management strategy includes the potential switch to Zepbound, pending insurance assistance. Exercise remains an important factor for this patient. There is a provision for future sleep apnea testing, but it is not yet immediate. We reviewed the need for a shingles vaccination and confirmed follow-up blood work. Awareness of his family?s cardiac issues warrants prompt attention. Patient consented to the planned care, understanding its benefits and the context of genetic risk involved. Patient Instructions - Continue current medications: aspirin, CoQ10, and metoprolol as prescribed. - Maintain Repatha for cholesterol management, monitor LDL levels. - Pursue weight loss strategies, possibly utilizing Zepbound if approved. - Consider the shingles vaccine, attending to any mild side effects. - Routine exercise at least five times weekly. - Keep track of family medical history, especially concerning heart disease. - Schedule follow-up lab work in August and record fasting blood work as needed. - Seek medical attention for any significant changes in health status. Medications: New tirzepatide (weight loss) (Zepbound) for 4 weeks 2.5 mg (0.5 mL) subcut QWEEK 2 mL 2RF E66.9 - Obesity, unspecified Discontinued semaglutide (weight loss) (Wegovy) administer weeks 1 through 4 of therapy Discontinued Reason: Insurance Denied 0.25 mg (0.5 mL) subcut QWEEK 2 mL 0RF E66.9 - Obesity, unspecified
--- OUTSIDE RECORDS SUMMARY | 2024-07-31 16:36 | XMS_ITS | Patient Health Record ---
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 the day before the procedure for 1 day 07/21/2021 Active Immunizations Vaccine Route Administration Date Status Comme nts Influenza Unknown 03/14/2018 Administered Influenza Unknown 07/21/2021 Refused Social History Alcohol Screen Question Answer Notes Did you [...] Never (0 point) Points 3 Interpretation Negative Problems Problem Type SNOMED Code ICD Code Onset Dates Problem Status W/U Status Risk Notes Problem 275831891 Colon cancer screening (Z12.11) Active confirmed Problem 50694858 Encounter for other preprocedural examination (Z01.818) Active confirmed Problem 889642878 Long-term use of aspirin therapy (Z79.82) Active confirmed Plan Of Treatment Future Test Test Name Order Date COLONOSCOPY 10/10/2012 COLONOSCOPY 03/14/2018 COLONOSCOPY 07/21/2021 Insurance Providers Payer Name Payer Address Payer Phone Subscriber Number Group Number Insured Name Patient Relationship to Insured Coverage Start Date Coverage End Date [facility] [address] [place], [place] [id number] [id number] BURGESS Self - patient is the insured Medical (General) History Medical History History ICD Code coronary artery disease, history of [place] x 2 elevated cholesterol hypertension pinched nerve - physicial therapy Surgical History Surgery Date(Month/Year) Disc surgery on back coronary artery stenting x2 basil cell [place]
== END 2024-07-31 15:45 | disposition home or self-care (01) ==
LOC: HO.HMCH 15:08
PROVIDERS: PCP Internal Medicine; Visit Provider Internal Medicine
DX: Z00.00 Encounter for general adult medical examination without abnormal findings (principal); E66.9 Obesity, unspecified; Z68.35 Body mass index [BMI] 35.0-35.9, adult; I25.10 Atherosclerotic heart disease of native coronary artery without angina pectoris; I10 Essential (primary) hypertension; E78.00 Pure hypercholesterolemia, unspecified; K21.9 Gastro-esophageal reflux disease without esophagitis; G47.10 Hypersomnia, unspecified

== ENCOUNTER → 2024-07-31 15:07 | Outpatient (BNVA) | payer BC, SELFPAY | PROVIDERS: PCP Internal Medicine; Visit Provider Internal Medicine ==

== ENCOUNTER 2024-10-30 06:01 | Outpatient (REF) | payer BC, SELFPAY ==
--- OUTSIDE RECORDS SUMMARY | 2024-10-30 06:04 | XMS_ITS | Patient Health Record ---
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 Name Role Phone Puma Dailey MD Primary Care Provider Jose Webb Jr Unavailable Allergies No Known Allergies Reason For Referral No Information Medications Medication SIG (Take, Route, Frequency, Duration) Notes Start Date End Date Status CoQ-10 Active Repatha SureClick 140 MG/ML Subcutaneous for 28 Active Aspir-81 Active Metoprolol Succinate ER 50 MG Oral for 90 Active Gabapentin 100 MG TAKE 1 CAPSULE BY [facility] AT BEDTIME Oral for 30 Active MiraLax [...] Problem Status W/U Status Risk Notes Problem 240055709 Colon cancer screening (Z12.11) Active confirmed Problem 37870003 Encounter for other preprocedural examination (Z01.818) Active confirmed Problem 717279868 Long-term use of aspirin therapy (Z79.82) Active confirmed Plan Of Treatment Future Test Test Name Order Date COLONOSCOPY 10/10/2012 COLONOSCOPY 03/14/2018 COLONOSCOPY 07/21/2021 Insurance Providers Payer Name Payer Address Payer Phone Subscriber Number Group Number Insured Name Patient Relationship to Insured Coverage Start Date Coverage End Date [facility] [address] [place], [place] [id number] TODD BURGESS Self - patient is the insured Medical (General) History Medical History History ICD Code coronary artery disease, history of [place] x 2 elevated cholesterol hypertension pinched nerve - physicial therapy Surgical History Surgery Date(Month/Year) Disc surgery on back coronary artery stenting x2 basil cell [place]
[2024-10-30 06:24] LABS: MANUAL DIFF FLAG NO
[2024-10-30 07:45] LABS: Hematocrit 47.3 % (42.0-52.0); Hemoglobin 16.1 g/dl (14.0-18.0); Imm Gran Abs Auto 0.02 X10*3/uL (0.00-0.03); Imm Gran Pct Auto 0.3 % (0.0-0.4); Lymphocytes Absolute Auto 1.7 X10*3/uL (1.2-4.9); Mean Corpuscular HGB Conc 34.0 g/dl (31.0-36.0); Mean Corpuscular Hemoglobin 31.0 pg (27.0-33.0); Mean Corpuscular Volume 91.1 fL (80.0-98.0); NRBC Abs Auto 0.000 X10*3/uL (0.0-0.012); NRBC Pct Auto 0.0 /100WBC (0.0-0.2); Platelet Count 287 X10*3/uL (160-400); Red Blood Count 5.19 X10*6/uL (4.60-5.80); White Blood Count 6.3 X10*3/uL (4.8-10.8)
[2024-10-30 08:33] LABS: Alanine Aminotransferase 40 U/L (0-40); Albumin Level 4.4 g/dL (3.5-5.0); Alkaline Phosphatase 66 U/L (39-117); Anion Gap 12 (12-20); Aspartate Amino Transferase 23 U/L (5-37); Blood Urea Nitrogen 17 mg/dL (9-16); Calcium 9.3 mg/dL (8.4-10.2); Carbon Dioxide 26 mmol/L (22-29); Chloride 106 mmol/L (96-108); Cholesterol 95 mg/dL (<200); Estimated Glomerular Filt Rate > 60; HDL Cholesterol 39 mg/dL (>40); Magnesium 2.2 mg/dL (1.6-2.6); Potassium 4.6 mmol/L (3.3-5.1); Sodium 139 mmol/L (135-145); Total Protein 7.4 g/dL (6.5-8.0); Triglycerides 115 mg/dL (<150)
[2024-10-30 08:38] LABS: Free T4 (Free Thyroxine) 0.86 ng/dL (0.71-1.85); Thyroid Stimulating Hormone 2.12 uIU/mL (0.32-4.0)
[2024-10-30 08:48] LABS: Folate 8.7 ng/mL (> or = 4.0); Vitamin B12 341 pg/mL (200-900)
== END 2024-10-30 06:02 | disposition home or self-care (01) ==
LOC: HO.LAB 06:01
PROVIDERS: PCP Internal Medicine; Visit Provider Internal Medicine
DX: E78.00 Pure hypercholesterolemia, unspecified (principal); I25.10 Atherosclerotic heart disease of native coronary artery without angina pectoris; Z12.5 Encounter for screening for malignant neoplasm of prostate
CPT/HCPCS: 36415; 80053; 80061; 82607; 82746; 83735; 84153; 84439; 84443; 85025

== ENCOUNTER 2024-11-20 15:13 | Outpatient (AMB) | payer BC, SELFPAY ==
[2024-11-20 15:20] VITALS: BP 118/74; PULSE 78; BMI 33.9
--- NOTE | 2024-11-20 15:20 | A.OFFVIS_ITS ---
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 Allergies atorvastatin (Lipitor) Adverse Reaction (Unknown, Verified 07/31/24 15:10) Muscle cramps ezetimibe (Zetia) Adverse Reaction (Unknown, Verified 07/31/24 15:10) Muscle cramps rosuvastatin (Crestor) Adverse Reaction (Unknown, Verified 07/31/24 15:10) Muscle cramps Statins Support Adverse Reaction (Unknown, Uncoded 07/31/24 15:10) Muscle cramps Medication List - Last Reconciled 11/20/24 by Stephon Rodriguez MD aspirin (Adult Aspirin Regimen) 81 mg PO DAILY coenzyme Q10 (CoQ-10) 30 mg PO DAILY evolocumab (Repatha SureClick) 140 mg subcut Q2W metoprolol succinate ER 50 mg PO DAILY sildenafil (Viagra) 100 mg PO DAILY PRN tirzepatide (weight loss) (Zepbound) 10 mg (0.5 mL) subcut QWEEK HPI Comments Details: Edy comes for follow-up. He continues to exercise at high level. Denies any symptoms of exertional chest pain or shortness of breath. Most recent LDL is 33 mg/dL. He is currently on GLP 1 antagonist and has lost about 15 lb. He is very happy with it. He denies any prolonged palpitation irregular heartbeat. Denies any heart failure symptoms. Takes all his medications religiously. PFSH Medical History Sciatica Polysubstance abuse Vitamin D deficiency Hypercholesterolemia Hypertension Obesity (BMI 30-39.9) Erectile dysfunction GERD (gastroesophageal reflux disease) Coronary artery disease Alcohol abuse Surgical History Hx of cardiac cath Hx of colonoscopy Stented coronary artery History of surgery Family History Father Myocardial infarction Hypertension CVD (cardiovascular disease) Mother Hypertension Maternal Aunt Breast cancer Brother CVD (cardiovascular disease) Brother CVD (cardiovascular disease) [facility] Alcohol intake: current Alcohol intake frequency: a few times a week Alcohol type: beer Comment: 2 days weekend 4-5 beers Patient Tobacco Use Status: Never used Tobacco e-Cigarette/Vaping Use: Never Used Second Hand Smoke Exposure: No service: No Current occupational status: employed 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 Cognitive needs: No Hearing needs: No Vision needs: Yes Review of Systems Const Denies chills, Denies fatigue, Denies fever(s), Denies frequent falls, Denies weakness, Denies weight gain and Denies weight loss ENT Denies dizziness Card Denies chest pain, Denies leg edema, Denies lightheadedness, Denies palpitations, Denies dyspnea, Denies dyspnea on exertion, Denies orthopnea and Denies other (loss of consciousness) Resp Denies cough, Denies dyspnea and Denies dyspnea on exertion GI Denies hematochezia and Denies change in stool character Musc Denies abnormal gait, Denies muscle weakness, Denies numbness, Denies radiating pain into limb and Denies tingling Neuro Denies abnormal gait, Denies dizziness, Denies frequent falls, Denies numbness, Denies tingling and Denies weakness Endo Denies fatigue and Denies palpitations Physical Exam Vital Signs: Last Vital Signs Pulse 78 11/20/24 15:20 BP 118/74 11/20/24 15:20 BMI result Body Mass Index 33.9 Const Other: muscular build General: cooperative, healthy appearing, comfortable and no acute distress Orientation/consciousness: patient oriented x3 Neck Neck: Yes normal visual inspection Resp Effort & Inspection: normal respiratory effort Auscultation: clear to auscultation bilaterally, no crackles, no rales, no rhonchi and no wheezes Cardio Jugular venous distension: no JVD Rate: regular rate Rhythm: regular rhythm Heart sounds: S1 normal heart sound present, S2 normal heart sound present, no gallops, no murmurs and no rubs Neuro General: patient oriented x3 Extrem General: Yes normal to inspection Psych Appearance: grossly normal Mental Status: mental status grossly normal Speech and movement: Normal speech and movement present Office Procedures EKG Details: EKGs shows normal sinus rhythm with T-wave inversion inferior inferolateral leads, unchanged from before most likely suggestive of repolarization abnormality. [id number], Complete Assessment & Plan Assessment & Plan (1) Coronary artery disease: Comment: Premature atherosclerosis. Code(s): I25.10 - Atherosclerotic heart disease of [place] coronary artery without angina pectoris Category: Medical Qualifiers: Associated angina: without angina Coronary Disease-Associated Artery/Lesion type: [place] artery [place] vs. transplanted heart: [place] heart Qualified Code(s): I25.10 - Atherosclerotic heart disease of [place] coronary artery without angina pectoris Plan: Premature coronary artery disease with multiple stenting remotely. Myocardial perfusion imaging last year showed no evidence of myocardial ischemia but prior infarcted myocardial segments. LV function is overall normal. He denies any exertional chest pain at current workload. He has done very well with current therapy in his tolerating PCSK9 inhibitor therapy well. Importance of aggressive lipid modification was discussed. Continue the same. Continue low- dose aspirin therapy. Continue high-intensity statin therapy. Continue participate in aggressive weight loss program along with regular physical activity. (2) Hypertension: Code(s): I10 - Essential (primary) hypertension Category: Medical Qualifiers: Hypertension type: essential hypertension Qualified Code(s): I10 - Essential (primary) hypertension Plan: Hypertension which is currently well optimized advised to monitor blood pressure at home maintain a log. Goal blood pressure less than 130/84. Low-salt diet was discussed. Importance of aggressive weight loss was discussed. He understands and agrees. Will follow up in the clinic in 1 year's time, sooner p.r.n.. Thank you for allowing me to partake in his care Coding Level of Care Code Est Pt Level 4 (99322) Complex EM visit Add On G2211 Diagnoses Coronary artery disease involving [place] coronary artery of [place] heart without angina pectoris I25.10 Associated angina: without angina Coronary Disease-Associated Artery/Lesion type: [place] artery [place] vs. transplanted heart: [place] heart Essential hypertension I10 Hypertension type: essential hypertension CPT Codes EKG - CPT: 27603-[id number], Complete ([id number])
== END 2024-11-20 15:38 | disposition home or self-care (01) ==
LOC: HO.HCS 15:14
PROVIDERS: PCP Internal Medicine; Visit Provider Internal Medicine Cardiovascular Disease
DX: I25.10 Atherosclerotic heart disease of native coronary artery without angina pectoris (principal); I10 Essential (primary) hypertension
CPT/HCPCS: 93010; 99214

== ENCOUNTER → 2024-11-20 15:13 | Outpatient (BNVA) | payer BC, SELFPAY | PROVIDERS: PCP Internal Medicine; Visit Provider Internal Medicine Cardiovascular Disease | DX: I25.10 Atherosclerotic heart disease of native coronary artery without angina pectoris (principal); I10 Essential (primary) hypertension; Z95.5 Presence of coronary angioplasty implant and graft; Z98.890 Other specified postprocedural states | CPT/HCPCS: 93005 ==

== ENCOUNTER 2024-11-24 15:50 | Outpatient (AMB) | payer BC, SELFPAY ==
--- NOTE | 2024-11-24 15:53 | A.OFFPC_ITS ---
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 Accompanied by: Self / Same As Patient Allergies atorvastatin (Lipitor) Adverse Reaction (Unknown, Verified 11/24/24 15:55) Muscle cramps ezetimibe (Zetia) Adverse Reaction (Unknown, Verified 11/24/24 15:55) Muscle cramps rosuvastatin (Crestor) Adverse Reaction (Unknown, Verified 11/24/24 15:55) Muscle cramps Statins Support Adverse Reaction (Unknown, Uncoded 07/31/24 15:10) Muscle cramps Medication List - Last Reconciled 11/24/24 by Puma Dailey MD aspirin (Adult Aspirin Regimen) 81 mg PO DAILY coenzyme Q10 (CoQ-10) 30 mg PO DAILY evolocumab (Repatha SureClick) 140 mg subcut Q2W metoprolol succinate ER 50 mg PO DAILY sildenafil (Viagra) 100 mg PO DAILY PRN tirzepatide (weight loss) 12.5 mg (0.5 mL) subcut QWEEK Tobacco use date assessed: 11/24/24 Dental Screening Dental Screen Date: 11/24/24 Did you have a dental visit in the last 12 months?: Yes Did you have a dental problem in the last 6 months where you did not have access to dental care?: No Was dental information given to patient?: Patient has dentist [facility] Medical History Sciatica Polysubstance abuse Vitamin D deficiency Hypercholesterolemia Hypertension Obesity (BMI 30-39.9) Erectile dysfunction GERD (gastroesophageal reflux disease) Coronary artery disease Alcohol abuse Surgical History Hx of cardiac cath Hx of colonoscopy Stented coronary artery History of surgery Family History Father Myocardial infarction Hypertension CVD (cardiovascular disease) Mother Hypertension Maternal Aunt Breast cancer Brother CVD (cardiovascular disease) Brother CVD (cardiovascular disease) Social History Housing: Condominium Alcohol intake: current Alcohol intake frequency: a few times a week Alcohol type: beer Comment: 2 days weekend 4-5 beers Patient Tobacco Use Status: Never used Tobacco e-Cigarette/Vaping Use: Never Used Second Hand Smoke Exposure: No service: No Current occupational status: employed 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 1. Little interest or pleasure in doing things: not at all 2. Feeling down, depressed, or hopeless: not at all 3. Trouble falling or staying asleep, or sleeping too much: not at all 4. Feeling tired or having little energy: not at all 5. Poor appetite or overeating: not at all 6. Feeling bad about yourself - or that you are a failure or have let yourself or your family down: not at all 7. Trouble concentrating on things, such as reading the newspaper or watching television: not at all 8. Moving or speaking so slowly that other people could have noticed. Or the opposite - being so fidgety or restless that you have been moving around a lot more than usual: not at all 9. Thoughts that you would be better off or of hurting yourself in some way: not at all Total score: 0 Source: Developed by Drs. Juan Carlos Watters, Moon Franks, Lan Dickey and colleagues, with an educational nancy from [employer]. Thrive Questionnaire Date Thrive assessed: 11/24/24 I am a: Patient What is your living situation today?: I have a steady place to live Within the past 12 months, did the food you bought not last and you didn't have the money to get more?: Often true Within the past 12 months, did you worry whether your food would run out before you got money to buy more?: I choose not to answer this question Do you have trouble paying for medicines?: I choose not to answer this question Do you have trouble getting transportation to medical appointments?: I choose not to answer this question Do you have trouble paying your heating and electricity bill?: I choose not to answer this question Do you have trouble taking care of your child, family member or friend?: I choose not to answer this question Do you have trouble with day-to-day activities such as bathing, preparing meals, shopping, managing finances, etc.?: I choose not to answer this question Are you currently unemployed and looking for a job?: I choose not to answer this question Are you interested in more education?: I choose not to answer this question Please select the resources that you would like help with: None Currently or been in a relationship where the following occur: I choose not to answer THRIVE Score: 1 AUDIT C Alcohol Use Questionnaire (AUDIT-C) 1. How often do you have a drink containing alcohol?: 2-3 times a week 2. How many drinks containing alcohol do you have on a typical day when you are drinking?: 5 or 6 3. How often do you have six or more drinks on one occasion?: Never Total Score: 5 JOSÉ LUIS-7 AMB Questionnaire JOSÉ LUIS-7 Date JOSÉ LUIS - 7 assessed: 11/24/24 Feeling nervous, anxious, or on edge: 0 = Not at all Not being able to stop or control worryin = Not at all Worrying too much about different things: 0 = Not at all Trouble relaxin = Not at all Being so restless that it is hard to sit still: 0 = Not at all Becoming easily annoyed or irritable: 0 = Not at all Feeling afraid as if something awful might happen: 0 = Not at all Total JOSÉ LUIS-7 score (0-4 normal; 5-9 mild; 10-14 moderate; 15-21 severe): 0 Source: Developed by Drs. Juan Carlos Watters, Moon Franks, Lan Dickey and colleagues, with an educational nancy from [employer]. Physical exam (Primary Care) Vital Signs: Last Vital Signs Temp 97.3 F 11/24/24 15:54 Pulse 70 11/24/24 15:54 Resp 18 11/24/24 15:54 BP 132/78 11/24/24 15:54 Pulse Ox 96 11/24/24 15:54 Oxygen Delivery Method Room Air 11/24/24 15:54 BMI result Body Mass Index 33.9 Tobacco/Smoking Status: Tobacco use Status Tobacco use date assessed 11/24/24 11/24/24 15:59 Patient Tobacco Use Status Never used Tobacco 11/24/24 15:59 e-Cigarette/Vaping Use Never Used 11/24/24 15:59 PHQ-9: PHQ-9 Score PHQ-9: Total score 0 11/24/24 16:05 Thrive Assessment: Date of Thrive Assessment Date Thrive assessed 11/24/24 11/24/24 15:59 Currently or been in a relationship where the following occur: I choose not to answer Const General: alert; No acute distress Eyes Conjunctivae: conjunctivae normal Resp Auscultation: clear to auscultation bilaterally Cardio Rate: regular rate Rhythm: regular rhythm GI Inspection: Yes normal to inspection Extrem General: Yes normal to inspection and No edema Coding Level of Care Code Est Pt Level 4 (52262) Complex EM visit Add On G2211 Diagnoses Obesity (BMI 30-39.9) E66.9 Essential hypertension I10 Hypertension type: essential hypertension Coronary artery disease involving [place] coronary artery of [place] heart without angina pectoris I25.10 Coronary Disease-Associated Artery/Lesion type: [place] artery [place] vs. transplanted heart: [place] heart Associated angina: without angina Hypercholesterolemia E78.00 Gastroesophageal reflux disease without esophagitis K21.9 Esophagitis presence: without esophagitis Assessment & Plan Assessment & Plan (1) Obesity (BMI 30-39.9): Code(s): E66.9 - Obesity, unspecified Category: Medical Plan: Diet and exercise presently on tirzepatide. Noted 16 lb weight loss from the last time (2) Hypertension: Code(s): I10 - Essential (primary) hypertension Category: Medical Qualifiers: Hypertension type: essential hypertension Qualified Code(s): I10 - Essential (primary) hypertension Plan: Continue with blood pressure medication. Decrease salt intake and exercise patient is on metoprolol 50 mg once a day (3) Coronary artery disease: Comment: Premature atherosclerosis. Code(s): I25.10 - Atherosclerotic heart disease of [place] coronary artery without angina pectoris Category: Medical Qualifiers: Coronary Disease-Associated Artery/Lesion type: [place] artery [place] vs. transplanted heart: [place] heart Associated angina: without angina Qualified Code(s): I25.10 - Atherosclerotic heart disease of [place] coronary artery without angina pectoris Plan: Control the cholesterol, weight, blood pressure, continue with aspirin (4) Hypercholesterolemia: Code(s): E78.00 - Pure hypercholesterolemia, unspecified Category: Medical Plan: Avoid fried foods, chicken skin, eggs, butter margarine, pastries and meat. Be it pork or beef they have a lot of cholesterol October 2024 last blood work LDL goa l of less than 60. On Repatha (5) GERD (gastroesophageal reflux disease): Code(s): K21.9 - Gastro-esophageal reflux disease without esophagitis Category: Medical Qualifiers: Esophagitis presence: without esophagitis Qualified Code(s): K21.9 - Gastro-esophageal reflux disease without esophagitis Plan: Avoid the foods that causes that usually spicy foods, tomato products, juices, coffee, soda and foods that your sensitive to. After eating do not lie down, allow 3-4 hours before in lie down. And keep the head of bed above 30 degrees to avoid the acid from going up. Plan History of Present Illness The patient is a 64-year-old male presenting for a follow-up visit for chronic c onditions management. The patient has a history of coronary artery disease and is currently managed with aspirin and a PCSK9 inhibitor. 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 The patient also has hypertension, for which he is taking metoprolol 50 mg daily. His blood pressure management plan was discussed, but specific blood pressure readings were not provided. The patient is obese and has been working on weight management. He has lost 16 pounds since his last visit, attributed to lifestyle changes and medication adjustments, including the use of terzepatide. The patient is advised to continue with diet and exercise to further aid weight loss. Preventative care measures include an up-to-date colon cancer screening, with the last test conducted in August 2021. Health Maintenance - Colon cancer screening up to date, last test in August 2021 - Discussion on shingles vaccination, patient informed about potential side effects and availability at pharmacies Social History - Exercise: Patient is increasing physical activity as part of weight management efforts - Diet: Patient is focusing on dietary changes to support weight loss Review of Systems - Gastrointestinal: Denies constipation, reports normal bowel movements - Genitourinary: Reports normal urination, denies issues Physical Exam Results - Labs: Normal blood count, no anemia, normal electrolytes, stable renal function, normal blood sugar, good liver function, LDL cholesterol at 33 mg/dL, normal thyroid function Plan The patient will continue with current management for coronary artery disease, including aspirin and PCSK9 inhibitor therapy, with a focus on maintaining LDL cholesterol levels below 60 mg/dL. Hypertension management will continue with metoprolol 50 mg daily, and the patient is advised to monitor blood pressure regularly. For obesity, the patient is encouraged to maintain dietary changes and increase physical activity, with ongoing use of terzepatide to support weight loss. The patient has been informed about the potential side effects of increasing the terzepatide dose and advised to report any adverse effects. Preventative care includes maintaining up-to-date colon cancer screening and considering shingles vaccination, with information provided on its availability and potential side effects. Patient was informed and verbally consented to the use of an ambient scribe for clinic note documentation during this visit. Discussion Notes I discussed with the patient the importance of maintaining LDL cholesterol levels below 60 mg/dL and the continuation of aspirin and PCSK9 inhibitor therapy for coronary artery disease management. We reviewed the hypertension management plan, emphasizing the need for regular blood pressure monitoring while on metoprolol. I advised the patient on the benefits of weight management through diet and exercise, supported by terzepatide, and discussed the potential side effects of increasing the dose. Preventative care measures, including the up-to-date status of colon cancer screening and the option of shingles vaccination, were also discussed. Patient Instructions - Continue taking aspirin and PCSK9 inhibitor as prescribed. - Take metoprolol 50 mg daily and monitor blood pressure regularly. - Maintain dietary changes and increase physical activity to support weight loss. - Report any side effects from terzepatide, especially if increasing the dose. - Keep up with colon cancer screening and consider shingles vaccination. Medications: Changed From tirzepatide (weight loss) (Zepbound) 10 mg (0.5 mL) subcut QWEEK 2 mL 0RF To tirzepatide (weight loss) 12.5 mg (0.5 mL) subcut QWEEK 2 mL 4RF
[2024-11-24 15:54] VITALS: BP 132/78; PULSE 70; RESP 18; TEMP 36.3; O2SAT 96; BMI 33.9
--- OUTSIDE RECORDS SUMMARY | 2024-11-24 16:01 | XMS_ITS | Patient Health Record ---
Author Organization [facility] Address [address] [place] [address] Care Team Providers Care Sales Representative Supervisor Name Role Phone Puma Dailey MD Primary Care Provider Jose Webb Jr Unavailable [phone] Allergies No Known Allergies Reason For Referral No Information Medications Medication SIG (Take, Route, Frequency, Duration) Notes Start Date End Date Status CoQ-10 Active Repatha SureClick 140 MG/ML Subcutaneous for 28 Active Aspir-81 Active Metoprolol Succinate ER 50 MG Oral for 90 Active Gabapentin 100 MG TAKE 1 CAPSULE BY [facility] AT BEDTIME Oral for 30 Active [...] Problem Status W/U Status Risk Notes Problem [id number] Colon cancer screening (Z12.11) Active confirmed Problem [id number] Encounter for other preprocedural examination (Z01.818) Active confirmed Problem [id number] Long-term use of aspirin therapy (Z79.82) Active confirmed Plan Of Treatment Future Test Test Name Order Date COLONOSCOPY 10/10/2012 COLONOSCOPY 03/14/2018 COLONOSCOPY 07/21/2021 Insurance Providers Payer Name Payer Address Payer Phone Subscriber Number Group Number Insured Name Patient Relationship to Insured Coverage Start Date Coverage End Date [facility] [address] [place], [place] [id number] TODD BURGESS Self - patient is the insured Medical (General) History Medical History History ICD Code coronary artery disease, history of IA x 2 elevated cholesterol hypertension pinched nerve - physicial therapy Surgical History Surgery Date(Month/Year) Disc surgery on back coronary artery stenting x2 basil cell forhead
== END 2024-11-24 16:17 | disposition home or self-care (01) ==
LOC: HO.HMCH 15:51
PROVIDERS: PCP Internal Medicine; Visit Provider Internal Medicine
DX: I10 Essential (primary) hypertension (principal); E66.9 Obesity, unspecified; Z68.33 Body mass index [BMI] 33.0-33.9, adult; I25.10 Atherosclerotic heart disease of native coronary artery without angina pectoris; E78.00 Pure hypercholesterolemia, unspecified; K21.9 Gastro-esophageal reflux disease without esophagitis